=== PATIENT | female | born 1955 | race Caucasian/White ===

== ENCOUNTER 2023-12-17 16:50 | Emergency (ER) | payer MEDICARE, OTHER, SELFPAY ==
[2023-12-17] VITALS (8 sets, daily range): BP systolic 112–137; BP diastolic 55–74
[2023-12-17 17:12] LABS: % Basophils 0.2 % (0-2); % Eosinophils 0.2 % (0-6); % Immature Granulocytes 1.1 % (0-0.5); % Lymphocytes 25.2 % (20.5-51.1); % Monocytes 5.9 % (1.7-9.3); % Neutrophils 67.4 % (42.2-75.2); Absolute Immature Granulocytes 0.2 10^3/uL (0-0.05); Absolute Lymphocytes 3.8 10^3/uL (1.2-3.4); Absolute Monocytes 0.9 10^3/uL (0.1-0.6); Absolute Neutrophils 10.1 10^3/uL (1.4-6.5); Hematocrit 39.1 % (37.0-47.0); Hemoglobin 12.1 g/dL (12.0-16.0); Mean Corp Hgb Conc. 30.9 g/dL (33.0-37.0); Mean Corpuscular Hgb 30.1 pg (27.0-31.0); Mean Corpuscular Volume 97.3 fL (81.0-99.0); Mean Platelet Volume 8.7 fL (7.4-10.4); Nucleated Red Blood Cells % 0 %; Platelet Count 394 10^3/uL (130-400); Red Blood Cell Count 4.02 10^6/uL (4.20-5.40); Red Cell Dist. Width 12.4 % (11.5-14.5)
--- NOTE | 2023-12-17 17:19 | ED.GENMED ---
History of Present Illness
General
Chief Complaint: Breathing Problem
Source: [facility] and [facility]
Exam Limitations: none
Time Seen by Provider: 12/17/23 17:06
Nursing documentation reviewed up to this point in time: agreed with
History of Present Illness
History of Present Illness:
68-year-old female from local care facility presents with sputum production cough shortness of breath chronically on oxygen, for COPD staff reported pulse ox was low, given a neb by EMS still wheezing when I saw her no chest pain no leg edema no
fever no calf pain
Past History
Past History
ED Past Medical History: CHF, COPD (Emphysema/asthma), HTN, Hypercholesterolemia, Hypothyroidism, Psychiatric (Schizoaffective disorder, anxiety, never been hospitalized), Other (Bilateral Pneumonia, Diverticulitis,), Other (Dysphagia) and Other
(Ambulatory dysfunction)
ED Past Surgical History: Appendectomy and Cholecystectomy
Social History
Tobacco: Former smoker
Alcohol: Occasional
Drug: None
Personal:
Living: [facility]
Employment: Retired
Family History
Family History: Other (Noncontributory)
Review of Systems
Review of Systems
All Other Systems: Not applicable
Constitutional: Reports fatigue; Denies fever
Respiratory: Reports cough and trouble breathing
Cardiac: Reports no symptoms
ABD/GI: Reports no symptoms
: Reports no symptoms
Musculoskeletal: Reports no symptoms
Skin: Reports no symptoms
Endocrine: Reports no symptoms
Phy Exam
Physical Exam
Physical Exam:
Physical Exam
General: 6 female moderate respiratory distress
Neck: No jaundice
Heart: Regular
Lungs: Wheezing diminished breath sounds while
Abdomen: Distended not tender
Neuro: Globally weak moves all extremities
Skin: no rash
Psychiatric: Flat cooperative
Extremities: no edema. no calf tenderness
Scores
Heart Failure Risk
Heart Failure Risk Score: Not Applicable
Course
Orders/Labs/Results
Orders:
Orders
12/17/23 17:01
Electrocardiogram (*1) Urgent
Reason for Study: Shortness of Breath
12/17/23 17:02
EKG- Treatment ONCE
12/17/23 17:03
COVID-19 Antigen Urgent
Source: Nasal Swab
Complete Blood Count/With Diff Urgent
Comprehensive Metabolic Panel Urgent
NT-proBNP Urgent
12/17/23 17:06
CR Chest - 2 Views Urgent
Reason For Exam: SOB
12/17/23 17:18
Albuterol Nebs [Ventolin Nebules] 2.5 mg INH R NOW STA
Dexamethasone Sod Phosphate [Decadron] 10 mg IV NOW STA
Abnormal Lab Results
12/17/23
17:03
WBC 15.0 H 10^3/uL
(4.8-10.8)
RBC 4.02 L 10^6/uL
(4.20-5.40)
MCHC 30.9 L g/dL
(33.0-37.0)
Abs Immat Gran (auto) 0.2 H 10^3/uL
(0-0.05)
Absolute Neuts (auto) 10.1 H 10^3/uL
(1.4-6.5)
Absolute Lymphs (auto) 3.8 H 10^3/uL
(1.2-3.4)
Absolute Monos (auto) 0.9 H 10^3/uL
(0.1-0.6)
Immature Gran % 1.1 H %
(0-0.5)
Chloride 95 L mmol/L
(98-107)
Carbon Dioxide 35 H mmol/L
(22-30)
BUN 24 H mg/dl
(7-17)
AST 43 H U/L
(14-36)
ALT 42 H U/L
(0-35)
12/17/23 17:03
12/17/23 17:03
Vital Signs
Initial and Last Documented VS:
Initial Vital Signs
Temp Pulse Resp Pulse Ox
98.1 F 87 18 92
12/17/23 16:53 12/17/23 16:53 12/17/23 16:53 12/17/23 16:53
Last Documented Vital Signs
Temp Pulse Resp Pulse Ox
98.1 F 87 18 92
12/17/23 16:53 12/17/23 16:53 12/17/23 16:53 12/17/23 16:53
MDM/Problems Addressed
Differential Diagnosis Includes:
COPD heart failure pneumonia COVID
MDM/Problems Addressed:
Shortness of breath
Chronic conditions affecting care: HTN and COPD
Acute Exacerbation and/or Progression of Chronic Illness: HTN and COPD
*Radiology
Radiology exam reviewed: preliminary read by ED provider
*Pulse Oximetry
Patient hypoxic: yes
*EKG
Interpreted by ED Provider?: Yes
Interpretation: abnormal
Comparison EKG: no comparison EKG present
Heart Rate: 78
Rate: normal
Rhythm: sinus
Ischemia: non-specific ST changes
*Critical Care Note
Total Time (30-74mins, 75-104mins- exclusive of procedures): 12
Update Note
Update Note:
6:20 PM chest x-ray noted labs noted will continue with nebs supplemental oxygen and see how she responds
Update patient clinically improved satting better looking better she is hungry discharged with a short course of steroids consideration for empiric antibiotics
ED Attending Note
-
Portions of this chart may have been created with voice recognition software.� Occasional wrong word or��sound alike� substitutions may have occurred due to the inherent limitations of voice recognition software.
Discharge Plan
Departure
Patient Disposition: Assisted Living
Date of Disposition: 12/17/23
Time of Disposition: 18:58
Patient with high blood pressure during this ER visit?: No
Condition: Good
Covid-19: Negative COVID-19
Discharge Problem:
COPD with acute exacerbation, Acute bronchitis
Instructions: Exacerbation of COPD (DC), Shortness of Breath (Dyspnea) (DC)
Prescriptions:
New
doxycycline hyclate 100 mg capsule
100 mg PO BID Qty: 14 0RF
methylprednisolone [Medrol (Giovanny)] 4 mg tablets,dose pack
See Rx Instructions .ROUTE .COMPLEX Qty: 21 0RF
Rx Instructions:
for 6 days
albuterol sulfate 2.5 mg /3 mL (0.083 %) solution for nebulization
2.5 mg inhalation Q4H PRN (Reason: shortness of breath or wheezing) Qty: 180 0RF
No Action
amlodipine 10 MG tablet
10 mg PO DAILY
trazodone 50 MG tablet
50 mg PO HS
diclofenac sodium [Voltaren] 100 GM gel
100 gm topical DAILY PRN (Reason: pain to both shoulders/ kness)
fluphenazine HCl 5 mg Tablet
5 mg PO HS
acetaminophen [Tylenol] 325 mg Capsule
650 mg PO Q6H PRN (Reason: mild pain/ temp->100)
acetaminophen [Tylenol] 325 mg Tablet
650 mg PO DAILY
acetylcysteine 200 mg/mL (20 %) Solution
3 ml PO Q8H PRN (Reason: SOB)
albuterol sulfate 1.25 mg/3 mL Solution For Nebulization
1.25 mg INHALATION QID PRN (Reason: SOB/ cough)
fexofenadine 180 mg Tablet
180 mg PO DAILY
ammonium lactate 12 % Lotion
1 applic TOPICAL BID
Rx Instructions:
for 14days. started on 02/04/2023 and end dte 02/18/2023
artificial tears solution
Q6H
docusate sodium [Colace] 100 mg Capsule
200 mg PO DAILY
Combivent Respimat 20-100 mcg/actuation Mist
1 puff INHALATION DAILY
bisacodyl [Dulcolax (bisacodyl)] 10 mg Suppository
10 mg [place] DAILY PRN (Reason: constipation if MOM ineffective)
Fleet Enema 19-7 gram/118 mL Enema
1 ml SC PRN (Reason: constipation if dulcolax ineffective)
fluticasone furoate 27.5 mcg/actuation [place],Suspension
1 spray INTRANASAL DAILY
ipratropium-albuterol 0.5 mg-3 mg(2.5 mg base)/3 mL Solution For Nebulization
3 ml INHALATION Q8H
levothyroxine [Synthroid] 112 mcg Tablet
112 mcg PO DAILY
melatonin 10 mg Tablet
10 mg PO HS
Milk of Magnesia
30 ml PO PRN (Reason: constipation,if no BM X3days)
guaifenesin [Mucinex] 600 mg Tablet Extended Release 12hr
1,200 mg PO BID
montelukast [Singulair] 10 mg Tablet
10 mg PO DAILY
venlafaxine 150 mg Capsule,Extended Release 24hr
150 mg PO DAILY
albuterol sulfate [Ventolin HFA] 90 mcg/actuation Hfa Aerosol Inhaler
2 puff INHALATION Q4H PRN (Reason: asthma)
Vitamin D3
1.25 mg PO DAILY
Rx Instructions:
until 03/04/2023 ( 8week)
furosemide 40 mg Tablet
40 mg PO DAILY Qty: 30 0RF
prednisone 20 mg Tablet
40 mg PO DAILY Qty: 2 0RF
Rx Instructions:
last dose will be 02/11
doxycycline hyclate 100 mg Capsule
100 mg PO BID Qty: 3 0RF
lisinopril 20 mg Tablet
20 mg PO DAILY Qty: 30 0RF
pantoprazole 40 mg Tablet,Delayed Release (Dr/Ec)
40 mg PO DAILY Qty: 30 0RF
clonazepam 0.5 MG tablet
0.5 mg PO HS Qty: 3 0RF
tramadol 50 mg Tablet
50 mg PO BID PRN (Reason: moderate pain) Qty: 6 0RF
Referrals:
Andrei Best DO [Family Provider] -
Interventions
Interventions:
*Risk Screen - Suicide Last Done: 12/17/23 16:53
*General Assessment Last Done: 12/17/23 16:53
*Neglect/Abuse Screening Last Done: 12/17/23 16:53
Discharge Date and Time
Print Language: PU[place]
[2023-12-17 17:27] LABS: COVID-19 Antigen Negative (Negative)
[2023-12-17] MEDS: VENTOLIN NEBULES 2.5 MG INH (17:28)
[2023-12-17] MEDS: DECADRON 10 MG IV (17:28)
[2023-12-17 17:30] LABS: ALT (SGPT) 42 U/L (0-35); AST (SGOT) 43 U/L (14-36); Albumin 4.4 g/dl (3.5-5.0); Alkaline Phosphatase 76 U/L (38-126); Blood Urea Nitrogen 24 mg/dl (7-17); Calcium 9.7 mg/dl (8.4-10.2); Chloride 95 mmol/L (98-107); Glucose 80 mg/dl (70-99); Potassium 4.8 mmol/L (3.5-5.1); Sodium 142 mmol/L (135-145); Total Bilirubin 0.4 mg/dl (0.2-1.3); Total Protein 7.7 g/dl (6.3-8.2); eGFR > 60.00
[2023-12-17 17:40] LABS: Carbon Dioxide 35 mmol/L (22-30)
[2023-12-17 17:45] LABS: NT-proBNP 192 pg/ml
[2023-12-18] VITALS: BP 123/65
== END 2023-12-18 01:09 ==
LOC: EMR 16:50
PROVIDERS: Student in an Organized Health Care Education/Training Program; EMERGENCY PHYSICIAN Emergency Medicine
DX: J44.1 Chronic obstructive pulmonary disease with (acute) exacerbation (principal); J20.9 Acute bronchitis, unspecified; I11.0 Hypertensive heart disease with heart failure; I50.9 Heart failure, unspecified; E03.9 Hypothyroidism, unspecified; E78.00 Pure hypercholesterolemia, unspecified; F25.9 Schizoaffective disorder, unspecified; Z99.81 Dependence on supplemental oxygen; Z87.891 Personal history of nicotine dependence; Z90.49 Acquired absence of other specified parts of digestive tract
CPT/HCPCS: 99283; 94640; 96374; 71046; 80053; 83880; 85025; 87811; 93005

== ENCOUNTER 2024-07-14 16:23 | Emergency (ER) | payer MEDICARE, OTHER, SELFPAY ==
[2024-07-14 16:25] VITALS: BP 119/62
[2024-07-14 17:00] VITALS: BP 118/58
[2024-07-14] MEDS: DUONEB 3 ML INH (17:11)
[2024-07-14 17:18] LABS: % Basophils 0.8 % (0-2); % Eosinophils 7.5 % (0-6); % Immature Granulocytes 0.4 % (0-0.5); % Lymphocytes 29.5 % (20.5-51.1); % Monocytes 6.7 % (1.7-9.3); % Neutrophils 55.1 % (42.2-75.2); Absolute Basophils 0.1 10^3/uL (0-0.2); Absolute Eosinophils 0.8 10^3/uL (0-0.7); Absolute Lymphocytes 3.2 10^3/uL (1.2-3.4); Absolute Monocytes 0.7 10^3/uL (0.1-0.6); Absolute Neutrophils 5.9 10^3/uL (1.4-6.5); Hematocrit 34.6 % (37.0-47.0); Hemoglobin 10.7 g/dL (12.0-16.0); Mean Corp Hgb Conc. 30.9 g/dL (33.0-37.0); Mean Corpuscular Hgb 30.6 pg (27.0-31.0); Mean Corpuscular Volume 98.9 fL (81.0-99.0); Mean Platelet Volume 9.2 fL (7.4-10.4); Nucleated Red Blood Cells % 0 %; Platelet Count 309 10^3/uL (130-400); Red Cell Dist. Width 13.6 % (11.5-14.5); White Blood Cell Count 10.7 10^3/uL (4.8-10.8)
[2024-07-14 17:40] LABS: Blood Urea Nitrogen 14 mg/dl (7-17); Calcium 9.3 mg/dl (8.4-10.2); Carbon Dioxide 38 mmol/L (22-30); Chloride 95 mmol/L (98-107); Glucose 81 mg/dl (70-99); Sodium 137 mmol/L (135-145); eGFR > 60.00
[2024-07-14] MEDS: DECADRON 10 MG IV (18:41)
--- NOTE | 2024-07-14 19:25 | ED.GENMED ---
History of Present Illness
General
Chief Complaint: Breathing Problem
Source: patient, ambulance crew and residential
Exam Limitations: none
Time Seen by Provider: 07/14/24 16:30
Nursing documentation reviewed up to this point in time: agreed with
History of Present Illness
History of Present Illness:
68-year-old female presenting to the emergency department today with concerns of an episode where she felt shortness of breath and cramping. Claims that symptoms are fully resolved did receive morphine en route for the pain. Patient denies any
ongoing symptoms at this time
Past History
Past History
ED Past Medical History: CHF, COPD (Emphysema/asthma), HTN, Hypercholesterolemia, Hypothyroidism, Psychiatric (Schizoaffective disorder, anxiety, never been hospitalized), Other (Bilateral Pneumonia, Diverticulitis,), Other (Dysphagia) and Other
(Ambulatory dysfunction)
ED Past Surgical History: Appendectomy and Cholecystectomy
Social History
Tobacco: Former smoker
Alcohol: Occasional
Drug: None
Personal:
Living: residential
Employment: Retired
Family History
Family History: Other (Noncontributory)
Review of Systems
Review of Systems
Allergies reviewed?: Yes
All Other Systems: ROS reviewed and negative except as documented in HPI and ROS
Phy Exam
Physical Exam
Physical Exam:
GENERAL: Alert , in no apparent distress
EYE: pupils equal and reactive
NECK: Supple, no significant adenopathy.
ENT: o/p clr, mmm.
CARDIAC: Regular rate and rhythm .
LUNGS: End expiratory wheezing diffusely
ABDOMEN: Soft, without focal tenderness, no r/g, no cvat
NEUROLOGICAL: Alert and oriented, no focal neuro deficits
SKIN: Warm and dry, skin intact.
MUSCULOSKELETAL: No edema, well perfused.
PSYCH: Normal and appropriate interaction.
Scores
Heart Failure Risk
Heart Failure Risk Score: Not Applicable
Course
Orders/Labs/Results
Orders:
Orders
07/14/24 16:42
Dexamethasone Sod Phosphate [Decadron] 10 mg IV NOW STA
Ipratropium/Albuterol Sulfate [Duoneb] 3 ml INH R NOW STA
07/14/24 16:43
Electrocardiogram (*1) Stat
Reason for Study: Other
Other Reason for Exam: pneumonia
EKG- Treatment ONCE
CR Chest - 2 Views Urgent
Comment:
Reason For Exam: sob cough
07/14/24 17:06
Basic Metabolic Panel Urgent
Complete Blood Count/With Diff Urgent
Abnormal Lab Results
07/14/24
17:06
RBC 3.50 L 10^6/uL
(4.20-5.40)
Hgb 10.7 L g/dL
(12.0-16.0)
Hct 34.6 L %
(37.0-47.0)
MCHC 30.9 L g/dL
(33.0-37.0)
Absolute Monos (auto) 0.7 H 10^3/uL
(0.1-0.6)
Absolute Eos (auto) 0.8 H 10^3/uL
(0-0.7)
Eosinophils % 7.5 H %
(0-6)
Chloride 95 L mmol/L
(98-107)
Carbon Dioxide 38 H mmol/L
(22-30)
07/14/24 17:06
07/14/24 17:06
Vital Signs
Initial and Last Documented VS:
Initial Vital Signs
Temp Pulse Resp BP Pulse Ox
98.2 F 80 21 119/62 95
07/14/24 16:25 07/14/24 16:25 07/14/24 16:25 07/14/24 16:25 07/14/24 16:25
Last Documented Vital Signs
Temp Pulse Resp BP Pulse Ox
98.2 F 80 22 118/58 95
07/14/24 16:25 07/14/24 19:00 07/14/24 19:00 07/14/24 17:00 07/14/24 19:00
MDM/Problems Addressed
MDM/Problems Addressed:
68-year-old female presenting after an episode where she felt short of breath at her nursing facility. Symptoms now resolved. On arrival here vital signs are normal patient in no distress patient does have some wheezing though she claims to have
chronic wheezing does use 2 L nasal cannula at baseline for COPD. She was treated with steroid as well as nebulizer claim to be asymptomatic throughout ER stay EKG without emergent findings chest x-ray without emergent findings as well. Stable for
outpatient management return precautions given.
*Critical Care Note
Total Time (30-74mins, 75-104mins- exclusive of procedures): Not Applicable
ED Attending Note
-
Portions of this chart may have been created with voice recognition software.� Occasional wrong word or��sound alike� substitutions may have occurred due to the inherent limitations of voice recognition software.
Discharge Plan
Departure
Patient Disposition: Home (Routine Discharge)
Date of Disposition: 07/14/24
Time of Disposition: 19:27
Patient with high blood pressure during this ER visit?: No
Condition: Good
Covid-19: Not Applicable
Discharge Problem:
COPD with acute exacerbation
Instructions: Exacerbation of COPD (DC)
Prescriptions:
New
prednisone 50 mg tablet
50 mg PO DAILY 4 Days Qty: 4 0RF
No Action
amlodipine 10 MG tablet
10 mg PO DAILY
trazodone 50 MG tablet
50 mg PO HS
diclofenac sodium [Voltaren] 100 GM gel
100 gm topical DAILY PRN (Reason: pain to both shoulders/ kness)
fluphenazine HCl 5 mg Tablet
5 mg PO HS
acetaminophen [Tylenol] 325 mg Capsule
650 mg PO Q6H PRN (Reason: mild pain/ temp->100)
acetaminophen [Tylenol] 325 mg Tablet
650 mg PO DAILY
acetylcysteine 200 mg/mL (20 %) Solution
3 ml PO Q8H PRN (Reason: SOB)
albuterol sulfate 1.25 mg/3 mL Solution For Nebulization
1.25 mg INHALATION QID PRN (Reason: SOB/ cough)
fexofenadine 180 mg Tablet
180 mg PO DAILY
ammonium lactate 12 % Lotion
1 applic TOPICAL BID
Rx Instructions:
for 14days. started on 02/04/2023 and end dte 02/18/2023
artificial tears solution
Q6H
docusate sodium [Colace] 100 mg Capsule
200 mg PO DAILY
Combivent Respimat 20-100 mcg/actuation Mist
1 puff INHALATION DAILY
bisacodyl [Dulcolax (bisacodyl)] 10 mg Suppository
10 mg [place] DAILY PRN (Reason: constipation if MOM ineffective)
Fleet Enema 19-7 gram/118 mL Enema
1 ml [place] PRN (Reason: constipation if dulcolax ineffective)
fluticasone furoate 27.5 mcg/actuation [place],Suspension
1 spray INTRANASAL DAILY
ipratropium-albuterol 0.5 mg-3 mg(2.5 mg base)/3 mL Solution For Nebulization
3 ml INHALATION Q8H
levothyroxine [Synthroid] 112 mcg Tablet
112 mcg PO DAILY
melatonin 10 mg Tablet
10 mg PO HS
Milk of Magnesia
30 ml PO PRN (Reason: constipation,if no BM X3days)
guaifenesin [Mucinex] 600 mg Tablet Extended Release 12hr
1,200 mg PO BID
montelukast [Singulair] 10 mg Tablet
10 mg PO DAILY
venlafaxine 150 mg Capsule,Extended Release 24hr
150 mg PO DAILY
albuterol sulfate [Ventolin HFA] 90 mcg/actuation Hfa Aerosol Inhaler
2 puff INHALATION Q4H PRN (Reason: asthma)
Vitamin D3
1.25 mg PO DAILY
Rx Instructions:
until 03/04/2023 ( 8week)
furosemide 40 mg Tablet
40 mg PO DAILY Qty: 30 0RF
prednisone 20 mg Tablet
40 mg PO DAILY Qty: 2 0RF
Rx Instructions:
last dose will be 02/11
doxycycline hyclate 100 mg Capsule
100 mg PO BID Qty: 3 0RF
lisinopril 20 mg Tablet
20 mg PO DAILY Qty: 30 0RF
pantoprazole 40 mg Tablet,Delayed Release (Dr/Ec)
40 mg PO DAILY Qty: 30 0RF
clonazepam 0.5 MG tablet
0.5 mg PO HS Qty: 3 0RF
tramadol 50 mg Tablet
50 mg PO BID PRN (Reason: moderate pain) Qty: 6 0RF
doxycycline hyclate 100 mg capsule
100 mg PO BID Qty: 14 0RF
methylprednisolone [Medrol (Giovanny)] 4 mg tablets,dose pack
See Rx Instructions .ROUTE .COMPLEX Qty: 21 0RF
Rx Instructions:
for 6 days
albuterol sulfate 2.5 mg /3 mL (0.083 %) solution for nebulization
2.5 mg inhalation Q4H PRN (Reason: shortness of breath or wheezing) Qty: 180 0RF
Referrals:
Mustapha Salguero MD [Family Provider] -
Activity Restrictions/Additional Instructions:
You came to the emergency department today with concerns of shortness of breath episode prior to arrival. Here you are found to have some wheezing you were treated with a steroid and nebulizer here. Please continue to take steroids over the next 4
days. Return for any worsening, new or concerning symptoms.
Interventions
Interventions:
*Risk Screen - Suicide Last Done: 07/14/24 16:25
*General Assessment Last Done: 07/14/24 16:25
*Neglect/Abuse Screening Last Done: 07/14/24 16:25
*ED COVID-19 Vaccine History Last Done: 07/14/24 16:25
ED- Cardiac Assessment Last Done: 07/14/24 17:44
ED- Pulmonary Assessment Last Done: 07/14/24 17:44
Discharge Date and Time
Print Language: [place] ISLAND[place]
[2024-07-14 19:58] VITALS: BP 135/66
== END 2024-07-14 20:15 | disposition home or self-care (01) ==
LOC: EMR 16:23
PROVIDERS: Physician Assistant; EMERGENCY PHYSICIAN Student in an Organized Health Care Education/Training Program; FAMILY PHYSICIAN Otolaryngology Facial Plastic Surgery
DX: J44.1 Chronic obstructive pulmonary disease with (acute) exacerbation (principal); I11.0 Hypertensive heart disease with heart failure; I50.9 Heart failure, unspecified; F25.9 Schizoaffective disorder, unspecified; F41.9 Anxiety disorder, unspecified; E03.9 Hypothyroidism, unspecified; E78.00 Pure hypercholesterolemia, unspecified; Z87.891 Personal history of nicotine dependence; Z90.49 Acquired absence of other specified parts of digestive tract
CPT/HCPCS: 99283; 94640; 96374; 71046; 80048; 85025; 93005

== ENCOUNTER 2024-12-11 02:09 | Observation (INO) | payer MEDICARE, OTHER, SELFPAY ==
[2024-12-10 19:33] VITALS: BP 137/65
[2024-12-10 20:10] LABS: Hematocrit 39.2 % (37.0-47.0); Hemoglobin 12.1 g/dL (12.0-16.0); Mean Corp Hgb Conc. 30.9 g/dL (33.0-37.0); Mean Corpuscular Volume 96.8 fL (81.0-99.0); Nucleated Red Blood Cells % 0 %; Platelet Count 334 10^3/uL (130-400); Red Cell Dist. Width 12.9 % (11.5-14.5)
[2024-12-10 20:33] LABS: ALT (SGPT) 23 U/L (0-35); AST (SGOT) 28 U/L (14-36); Albumin 4.3 g/dl (3.5-5.0); Alkaline Phosphatase 58 U/L (38-126); Blood Urea Nitrogen 12 mg/dl (7-17); Calcium 8.9 mg/dl (8.4-10.2); Carbon Dioxide 35 mmol/L (22-30); Chloride 99 mmol/L (98-107); Glucose 143 mg/dl (70-99); Potassium 4.9 mmol/L (3.5-5.1); Sodium 139 mmol/L (135-145); Total Protein 7.3 g/dl (6.3-8.2); eGFR > 60.00
[2024-12-10 20:38] LABS: Troponin I < 0.012 ng/ml
--- NOTE | 2024-12-10 23:25 | ED.GENMED ---
History of Present Illness
General
Chief Complaint: Breathing Problem
Time Seen by Provider: 12/10/24 23:16
History of Present Illness
History of Present Illness:
69-year-old female with history of COPD and hypertension presents to the emergency department for evaluation of shortness of breath that began this afternoon. She has a history of COPD, it is not immediately clear on initial assessment if she
requires O2 or uses it as needed. She denies any chest pain. Notes that she had 'pneumonia' last week. Denies any fevers or chills. Reports a sore throat that began earlier today. She is anticoagulated long-term
Past History
Past History
ED Past Medical History: CHF, COPD (Emphysema/asthma), HTN, Hypercholesterolemia, Hypothyroidism, Psychiatric (Schizoaffective disorder, anxiety, never been hospitalized), Other (Bilateral Pneumonia, Diverticulitis,), Other (Dysphagia) and Other
(Ambulatory dysfunction)
ED Past Surgical History: Appendectomy and Cholecystectomy
Social History
Tobacco: Former smoker
Alcohol: Occasional
Drug: None
Personal:
Living: group home
Employment: Retired
Family History
Family History: Other (Noncontributory)
Review of Systems
Review of Systems
Allergies reviewed?: Yes
All Other Systems: ROS reviewed and negative except as documented in HPI and ROS
Phy Exam
Physical Exam
Physical Exam:
GEN: Well appearing, NAD, WDWN
HEENT: Oral mucosa moist, no scleral icterus
Cardiac: Regular rate and rhythm
Lung: Tachypneic with grossly diminished breath sounds throughout
MSK: No gross deformity or injuries
Skin: Good color, no pallor or jaundice, no rashes
Neuro: AO x3, moves all extremities freely
Psych: Calm, cooperative
Scores
Heart Failure Risk
Heart Failure Risk Score: Not Applicable
Course
Orders/Labs/Results
Orders:
Orders
12/10/24 19:37
Electrocardiogram (*1) Urgent
Reason for Study: Shortness of Breath
EKG- Treatment ONCE
12/10/24 20:02
BNP [NT-proBNP] Urgent
Complete Blood Count/With Diff Urgent
Comprehensive Metabolic Panel Urgent
Troponin I Urgent
12/10/24 22:52
CR Chest - 2 Views Urgent
Comment:
Reason For Exam: SOB
12/10/24 23:24
Ipratropium/Albuterol Sulfate [Duoneb] 6 ml INH R NOW ONE
12/10/24 23:55
COVID-19 Antigen Urgent
Source: Nasal Swab
Influenza A+B Rapid Molecular Urgent
JAYCOB Source: Nasal Swab
Specimen Description:
Abnormal Lab Results
12/10/24
20:02
WBC 11.8 H 10^3/uL
(4.8-10.8)
RBC 4.05 L 10^6/uL
(4.20-5.40)
MCHC 30.9 L g/dL
(33.0-37.0)
Abs Immat Gran (auto) 0.1 H 10^3/uL
(0-0.05)
Absolute Lymphs (auto) 3.6 H 10^3/uL
(1.2-3.4)
Absolute Monos (auto) 0.7 H 10^3/uL
(0.1-0.6)
Absolute Eos (auto) 0.9 H 10^3/uL
(0-0.7)
Immature Gran % 1.0 H %
(0-0.5)
Eosinophils % 7.5 H %
(0-6)
Carbon Dioxide 35 H mmol/L
(22-30)
Glucose 143 H mg/dl
(70-99)
12/10/24 20:02
12/10/24 20:02
Vital Signs
Initial and Last Documented VS:
Initial Vital Signs
Temp Pulse Resp BP Pulse Ox
98.2 F 87 16 137/65 98
12/10/24 19:33 12/10/24 19:33 12/10/24 19:33 12/10/24 19:33 12/10/24 19:33
Last Documented Vital Signs
Temp Pulse Resp BP Pulse Ox
98.2 F 87 16 137/65 100
12/10/24 19:33 12/10/24 19:33 12/10/24 19:33 12/10/24 19:33 12/10/24 23:43
MDM/Problems Addressed
MDM/Problems Addressed:
Patient did improve breath sounds with [id number] nebulizer treatments however with continued wheezing, she is chronically on oxygen at 2 L. Will admit for IV steroids and further neb treatments. Chest x-ray shows no evidence for pneumonia and
labs are reassuring
*Pulse Oximetry
SaO2: 98
Nasal Cannula flow liters per minute: 3
Patient hypoxic: no
*Critical Care Note
Total Time (30-74mins, 75-104mins- exclusive of procedures): Not Applicable
ED Attending Note
-
Portions of this chart may have been created with voice recognition software.� Occasional wrong word or��sound alike� substitutions may have occurred due to the inherent limitations of voice recognition software.
Discharge Plan
Departure
Patient Disposition: Admit
Date of Disposition: 12/11/24
Time of Disposition: 00:53
Admit to: Med/Surg
Presentation/result/management discussed w/ accepting MD/DO: Hospitalist
Discharge Problem:
Asthma exacerbation in COPD
Prescriptions:
No Action
amlodipine 10 MG tablet
10 mg PO DAILY
trazodone 50 MG tablet
50 mg PO HS
diclofenac sodium [Voltaren] 100 GM gel
100 gm topical DAILY PRN (Reason: pain to both shoulders/ kness)
fluphenazine HCl 5 mg Tablet
5 mg PO HS
acetaminophen [Tylenol] 325 mg Capsule
650 mg PO Q6H PRN (Reason: mild pain/ temp->100)
acetaminophen [Tylenol] 325 mg Tablet
650 mg PO DAILY
acetylcysteine 200 mg/mL (20 %) Solution
3 ml PO Q8H PRN (Reason: SOB)
albuterol sulfate 1.25 mg/3 mL Solution For Nebulization
1.25 mg INHALATION QID PRN (Reason: SOB/ cough)
fexofenadine 180 mg Tablet
180 mg PO DAILY
ammonium lactate 12 % Lotion
1 applic TOPICAL BID
Rx Instructions:
for 14days. started on 02/04/2023 and end dte 02/18/2023
artificial tears solution
Q6H
docusate sodium [Colace] 100 mg Capsule
200 mg PO DAILY
Combivent Respimat 20-100 mcg/actuation Mist
1 puff INHALATION DAILY
bisacodyl [Dulcolax (bisacodyl)] 10 mg Suppository
10 mg [place] DAILY PRN (Reason: constipation if MOM ineffective)
Fleet Enema 19-7 gram/118 mL Enema
1 ml [place] PRN (Reason: constipation if dulcolax ineffective)
fluticasone furoate 27.5 mcg/actuation [place],Suspension
1 spray INTRANASAL DAILY
ipratropium-albuterol 0.5 mg-3 mg(2.5 mg base)/3 mL Solution For Nebulization
3 ml INHALATION Q8H
levothyroxine [Synthroid] 112 mcg Tablet
112 mcg PO DAILY
melatonin 10 mg Tablet
10 mg PO HS
Milk of Magnesia
30 ml PO PRN (Reason: constipation,if no BM X3days)
guaifenesin [Mucinex] 600 mg Tablet Extended Release 12hr
1,200 mg PO BID
montelukast [Singulair] 10 mg Tablet
10 mg PO DAILY
venlafaxine 150 mg Capsule,Extended Release 24hr
150 mg PO DAILY
albuterol sulfate [Ventolin HFA] 90 mcg/actuation Hfa Aerosol Inhaler
2 puff INHALATION Q4H PRN (Reason: asthma)
Vitamin D3
1.25 mg PO DAILY
Rx Instructions:
until 03/04/2023 ( 8week)
furosemide 40 mg Tablet
40 mg PO DAILY Qty: 30 0RF
prednisone 20 mg Tablet
40 mg PO DAILY Qty: 2 0RF
Rx Instructions:
last dose will be 02/11
doxycycline hyclate 100 mg Capsule
100 mg PO BID Qty: 3 0RF
lisinopril 20 mg Tablet
20 mg PO DAILY Qty: 30 0RF
pantoprazole 40 mg Tablet,Delayed Release (Dr/Ec)
40 mg PO DAILY Qty: 30 0RF
clonazepam 0.5 MG tablet
0.5 mg PO HS Qty: 3 0RF
tramadol 50 mg Tablet
50 mg PO BID PRN (Reason: moderate pain) Qty: 6 0RF
doxycycline hyclate 100 mg capsule
100 mg PO BID Qty: 14 0RF
methylprednisolone [Medrol (Giovanny)] 4 mg tablets,dose pack
See Rx Instructions .ROUTE .COMPLEX Qty: 21 0RF
Rx Instructions:
for 6 days
albuterol sulfate 2.5 mg /3 mL (0.083 %) solution for nebulization
2.5 mg inhalation Q4H PRN (Reason: shortness of breath or wheezing) Qty: 180 0RF
prednisone 50 mg tablet
50 mg PO DAILY 4 Days Qty: 4 0RF
Referrals:
Lee Best DO [Family Provider, Family Practice]
Interventions
Interventions:
*Risk Screen - Suicide Last Done: 12/10/24 19:33
*General Assessment Last Done: 12/10/24 19:33
*Neglect/Abuse Screening Last Done: 12/10/24 19:33
*ED- Fall Risk Assessment Last Done: 12/10/24 19:33
*ED COVID-19 Vaccine History Last Done: 12/10/24 19:33
ED- Cardiac Assessment Last Done: 12/10/24 23:43
ED- Pulmonary Assessment Last Done: 12/10/24 23:43
Discharge Date and Time
Print Language: SYRIAN
[2024-12-10 23:43] VITALS: BMI 32.0
[2024-12-10] MEDS: DUONEB 6 ML INH (23:49)
[2024-12-11] VITALS (11 sets, daily range): BP systolic 91–120; BP diastolic 45–89; BMI 32.4
[2024-12-11 00:22] LABS: COVID-19 Antigen Negative (Negative)
[2024-12-11] MEDS: DUONEB 3 ML INH ×5 (00:58→18:25)
--- NOTE | 2024-12-11 01:44 | HPS.HSE ---
Family Physician
-
Family Physician: Lee Best, DO
Chief Complaint
-
SOB
History of Present Illness
Patient is a 69y F with PMH significant for COPD and schizophrenia who presents to ED complaining of SOB. Patient states that she has had increased SOB for about one week. She reports sore throat and increased cough from baseline. She states
that several residents at her facility have had 'cold symptoms' recently. [facility] she was noted to have wheezing. She received steroids and neb treatments and states that she feels improved from inital
arrival. Patient denies any chest pain, palpitations, fevers / chills, etc.
Medical History
Past Medical History
Past Medical History: Reports Other
Additional Past Medical History:
Schizophrenia
COPD
Hypertension
BALBINA
Thyroid Nodule
Hypothyroidism
Obesity
Past Surgical History: Reports Other
Additional Past Surgical History:
Bladder Surgery
Cholecystectomy
Parotidectomy
Social History
Tobacco: Former Smoker (Quit smoking 5 years ago. 40 pack years total use.)
Alcohol: Occasional
Drug: None
Living: Long Term
Family History
Family History: Not pertinent
Allergies / Home Medications
Allergies reflects when Allergies were last updated in [employer].
Home Medications with original date entered in [employer]
Allergy/Medication List:
Allergies
Allergy/AdvReac Type Severity Reaction Status Date / Time
cefepime Allergy Unknown Verified 12/17/23 16:53
codeine Allergy Unknown Verified 12/17/23 16:53
Penicillins Allergy Unknown Verified 12/17/23 16:53
vancomycin Allergy Unknown Verified 12/17/23 16:53
IV dye Allergy Anaphylaxis Uncoded 12/17/23 16:53
Home Medications
amlodipine 10 mg tablet 10 mg PO DAILY Blood Pressure 11/26/18
Milk of Magnesia 30 ml PO DAILYPRN PRN constipation,if no BM X3days 02/07/23
acetaminophen 325 mg capsule (Tylenol) 650 mg PO Q6H PRN mild pain/ temp->100 02/07/23
acetylcysteine 200 mg/mL (20 %) solution 3 ml PO Q8H PRN SOB 02/07/23
albuterol sulfate 90 mcg/actuation aerosol inhaler (Ventolin HFA) 2 puff inhalation Q4H PRN asthma 02/07/23
bisacodyl 10 mg rectal suppository (Dulcolax (bisacodyl)) 10 mg LA DAILY PRN constipation if MOM ineffective 02/07/23
docusate sodium 100 mg capsule (Colace) 200 mg PO DAILY Constipation 02/07/23
fexofenadine 180 mg tablet 180 mg PO DAILY Allergies 02/07/23
fluticasone furoate 27.5 mcg/actuation nasal spray,suspension 1 spray intranasal DAILY Allergies 02/07/23
guaifenesin 600 mg tablet, extended release 12 hr (Mucinex) 600 mg PO BID Congestion 02/07/23
ipratropium 0.5 mg-albuterol 3 mg (2.5 mg base)/3 mL nebulization soln 3 ml inhalation Q6H Lung/Breathing Issues 02/07/23
ipratropium 20 mcg-albuterol 100 mcg/actuation mist for inhalation (Combivent Respimat) 1 puff inhalation DAILY Lung/Breathing Issues 02/07/23
levothyroxine 112 mcg tablet (Synthroid) 112 mcg PO DAILY Thyroid 02/07/23
melatonin 10 mg tablet 10 mg PO HS Sleep 02/07/23
montelukast 10 mg tablet (Singulair) 10 mg PO DAILY Allergies 02/07/23
sodium phosphates 19 gram-7 gram/118 mL enema (Fleet Enema) 118 ml LA DAILYPRN PRN constipation if dulcolax ineffective 02/07/23
venlafaxine 150 mg capsule,extended release 24 hr 150 mg PO DAILY Depression 02/07/23
furosemide 40 mg tablet 40 mg PO DAILY #30 tabs 02/10/23
lisinopril 20 mg tablet 20 mg PO DAILY #30 tabs 02/10/23
albuterol sulfate 2.5 mg/3 mL (0.083 %) solution for nebulization 2.5 mg (3 mL) inhalation Q4H PRN shortness of breath or wheezing #180 mL 12/17/23
budesonide 0.5 mg/2 mL suspension for nebulization 0.5 mg inhalation BID 12/11/24
clonazepam 0.5 mg tablet 0.5 mg PO BID Sleep 12/11/24
fluphenazine HCl 2.5 mg tablet 2.5 mg PO BID 12/11/24
morphine concentrate 20 mg/mL oral syringe (FOR ORAL USE ONLY) 5 mg sublingual Q6H PRN SOB 12/11/24
potassium chloride 20 mEq tablet,extended release(part/cryst) 20 meq PO DAILY 12/11/24
sennosides 8.6 mg-docusate sodium 50 mg tablet (Senna Plus) 1 tab-cap PO BID 12/11/24
trazodone 150 mg tablet 75 mg PO HS 12/11/24
venlafaxine 37.5 mg tablet 37.5 mg PO DAILY 12/11/24
Review of Systems
-
History Source: Patient
A 12 point ROS was completed and negative except as noted: Yes
Constitutional: Denies Fever or Chills
EENT: Reports Sore Throat
Respiratory: Reports Cough and Trouble Breathing
Cardiac: Denies Chest Pain or Palpitations
Abdomen/GI: Denies Abdominal Pain, Nausea, Vomiting or Diarrhea
: Denies Dysuria or Frequency
Musculoskeletal: Denies Joint Pain or Edema
Neurological: Denies Dizzy or Headache
Physical Exam
Vital Signs
Vital Signs
Temp Pulse Resp BP Pulse Ox
98.2 F 82 15 114/62 96
12/10/24 19:33 12/11/24 00:45 12/11/24 00:45 12/11/24 00:00 12/11/24 00:45
Physical Exam
General: Other (69y F in no acute distress, Flat affect.)
HEENT: Moist mucous membranes, PERRLA and Other (Thick neck.)
Respiratory: Other (Diffuse inspiratory and expiratory rales. No audible wheezing.)
Cardiac: S1/S2 and Regular Rhythm; No Murmur
GI: Soft, Non Tender, Non Distended and Normal Bowel Sounds
Musculoskeletal: No Clubbing, No Cyanosis and No Edema
Neuro: AO x 3
Laboratory Results
-
12/10/24 20:02
12/10/24 20:02
Laboratory Results
Total Bilirubin 0.3 mg/dl (0.2-1.3) 12/10/24 20:02
AST 28 U/L (14-36) 12/10/24 20:02
ALT 23 U/L (0-35) 12/10/24 20:02
Alkaline Phosphatase 58 U/L (38-126) 12/10/24 20:02
Troponin I < 0.012 ng/ml 12/10/24 20:02
Impression/Plan
-
A/P: Patient is a 69y F with PMH significant for schizophrenia and COPD who presents to ED from local [place] for evaluation of SOB and sore throat.
COPD
Chronic Hypoxemic Respiratory Failure
- Observe overnight for further evaluation and treatment.
- Patient with subjective increase in symptoms, but oxygenating well on usual 2 lpm of O2, afebrile, non-toxic appearing and with unremarkable CXR.
- Solumedrol 40mg q 12 for now with tentative plan for rapid taper / transition to PO steroid.
- Pulmonary exam suggests more interstitial disease process with diffuse 'dry' rales. Consider CT scan if further evaluation is desired.
- Patient noted to be 'DNR/DNI/DNH' per [place] record and is on morphine concentrate for dyspnea. Need to clarify goals of care.
Schizoaffective Disorder
Anxiety
- Stable. Continue usual psychotropic med regimen without changes.
Benign Hypertension
- Stable. Continue usual outpatient medications.
Hypothyroidism
- Continue usual T4 supplementation.
DVT Prophylaxis: Lovenox
Code Status: DNR
[2024-12-11] MEDS: DECADRON 10 MG IV (02:27)
[2024-12-11] MEDS: SOLU-MEDROL PF 40 MG IV ×3 (05:52→21:59)
[2024-12-11] MEDS: SYNTHROID 112 MCG PO (05:53)
[2024-12-11 06:12] LABS: Hematocrit 34.3 % (37.0-47.0); Hemoglobin 10.8 g/dL (12.0-16.0); Mean Corp Hgb Conc. 31.5 g/dL (33.0-37.0); Mean Corpuscular Volume 95.8 fL (81.0-99.0); Platelet Count 284 10^3/uL (130-400); Red Cell Dist. Width 12.7 % (11.5-14.5)
[2024-12-11 06:47] LABS: Blood Urea Nitrogen 16 mg/dl (7-17); Calcium 8.9 mg/dl (8.4-10.2); Carbon Dioxide 34 mmol/L (22-30); Chloride 101 mmol/L (98-107); Estimated Creatinine Clearance 62 ml/min; Glucose 172 mg/dl (70-99); Sodium 139 mmol/L (135-145); eGFR > 60.00
[2024-12-11] MEDS: PULMICORT 0.5 MG INH ×2 (07:49→18:24)
[2024-12-11] MEDS: SENOKOT-S 1 TABLET PO ×2 (07:51→20:26)
[2024-12-11] MEDS: COLACE 200 MG PO (07:51)
[2024-12-11] MEDS: MUCINEX 600 MG PO ×2 (07:51→20:26)
[2024-12-11] MEDS: CLARITIN 10 MG PO (07:51)
[2024-12-11] MEDS: SINGULAIR 10 MG PO (07:52)
[2024-12-11] MEDS: NORVASC 10 MG PO (07:52)
[2024-12-11] MEDS: KLONOPIN 0.5 MG PO ×2 (07:52→20:26)
[2024-12-11] MEDS: KCL 20 MEQ PO (07:52)
[2024-12-11] MEDS: LASIX 40 MG PO (07:52)
[2024-12-11] MEDS: ZESTRIL 20 MG PO (07:53)
[2024-12-11] MEDS: PROLIXIN 2.5 MG PO ×2 (08:05→20:26)
[2024-12-11] MEDS: EFFEXOR XR 150 MG PO (08:05)
[2024-12-11] MEDS: EFFEXOR 37.5 MG PO (08:05)
--- NOTE | 2024-12-11 09:58 | W.PN.UPDATE ---
Update Note
Progress Note Update
Admitted 145 AM
reports breathing slightly improving
less cough
no chest pain
Assessment:
acute COPD exacerbation
Chronic Hypoxemic Respiratory Failure
- Patient with subjective increase in symptoms, but oxygenating well on usual 2 lpm of O2, afebrile, non-toxic appearing and with unremarkable CXR.
- Solu-Medrol 40mg q8h for now with tentative plan for rapid taper/transition to PO steroid.
- Pulmonary exam suggests more interstitial disease process with diffuse 'dry' rales. Obtain CT chest to further evaluate.
- Patient noted to be 'DNR/DNI/DNH' per [place] record and is on morphine concentrate for dyspnea. Discussed with Daughter Daniel - patient is DNR/DNI but is ok for treatment/hospitalization.
Schizoaffective Disorder
Anxiety
- Stable. Continue usual psychotropic med regimen without changes.
Benign Hypertension
- Stable. Continue usual outpatient medications.
Hypothyroidism
- Continue usual T4 supplementation.
DVT Prophylaxis: Lovenox
Code Status: DNR/DNI
[2024-12-11] MEDS: VIBRAMYCIN 100 MG PO ×2 (10:30→20:26)
--- NOTE | 2024-12-11 10:31 | CM ---
CM reviewed chart and met with pt bedside in ED. Pt is LTC resident at [facility] for past 5 years. Needs assistance with ADLs and personal care, wheelchair bound, states she is able to stand and pivot.
On 2L NC at baseline.
Discharge plan: Return to [facility] LTC pending ongoing medical evaluation
--- NOTE | 2024-12-11 13:25 | PTOTSP ---
Speech Language Pathology
Pt seen for clinical bedside swallow evaluation. Known to CASTING ROOM OPERATOR at with previous VSE completed 02/10/23, with findings of oropharyngeal swallow WFL. This date, P.O. trials of puree, regular solids, and thin liquids provided. Adequate mastication,
bolus formation, and A-P transit noted with no oral residue. Brief cough x1 during evaluation. WBC WNL and CT chest favoring atelectasis over PNA.
Recommend:
(1) Regular solids/thin liquids
(2) General aspiration precautions
(3) Esophageal precautions
(4) Meds as tolerated
(5) CASTING ROOM OPERATOR to sign off. Please reconsult as indicated
--- NOTE | 2024-12-11 15:54 | PTCARENOTE ---
Patient arrived from ED holds to 1 Acute on 2L NC, which is her home oxygen dose per chart. Pt is soft spoken, oriented, denies sob. Lungs are clear/diminished bilaterally. RT is in room now providing breathing treatment.
[2024-12-11] MEDS: LOVENOX 40 MG SC (17:20)
[2024-12-11] MEDS: DESYREL 75 MG PO (21:58)
[2024-12-11] MEDS: MELATONIN 10 MG PO (21:58)
[2024-12-12 04:25] VITALS: BMI 31.9
[2024-12-12] MEDS: SYNTHROID 112 MCG PO (06:06)
[2024-12-12] MEDS: SOLU-MEDROL PF 40 MG IV ×3 (06:06→22:11)
--- NOTE | 2024-12-12 06:29 | PTCARENOTE ---
Pt slept well overnight. Pt remains on 2 LO2 NC, occasional harsh cough noted when awake. Pt inc of urine, theo care provided when needed. Pt positioned per comfort. No issues to report. Will continue to monitor.
[2024-12-12 07:00] VITALS: BP 108/38
[2024-12-12] MEDS: PULMICORT 0.5 MG INH ×2 (07:17→19:14)
[2024-12-12] MEDS: DUONEB 3 ML INH ×4 (07:17→19:14)
[2024-12-12] MEDS: ZESTRIL 20 MG PO (08:30)
[2024-12-12] MEDS: KLONOPIN 0.5 MG PO ×2 (08:30→20:36)
[2024-12-12] MEDS: EFFEXOR 37.5 MG PO (08:30)
[2024-12-12] MEDS: SINGULAIR 10 MG PO (08:31)
[2024-12-12] MEDS: PROLIXIN 2.5 MG PO ×2 (08:31→20:35)
[2024-12-12] MEDS: COLACE 200 MG PO (08:31)
[2024-12-12] MEDS: LASIX 40 MG PO (08:34)
[2024-12-12] MEDS: SENOKOT-S 1 TABLET PO ×2 (08:35→20:35)
[2024-12-12] MEDS: MUCINEX 600 MG PO ×2 (08:35→20:34)
[2024-12-12] MEDS: EFFEXOR XR 150 MG PO (08:35)
[2024-12-12] MEDS: KCL 20 MEQ PO (08:35)
[2024-12-12] MEDS: CLARITIN 10 MG PO (08:35)
[2024-12-12] MEDS: VIBRAMYCIN 100 MG PO ×2 (08:35→20:36)
[2024-12-12] MEDS: NORVASC PO (08:40)
[2024-12-12 08:56] VITALS: BP 120/57; BP 93/51; PULSE 75; O2SAT 98
[2024-12-12 09:43] VITALS: BP 120/57; BP 93/51; PULSE 75; O2SAT 96
[2024-12-12 10:41] LABS: Hematocrit 34.5 % (37.0-47.0); Hemoglobin 11.0 g/dL (12.0-16.0); Mean Corp Hgb Conc. 31.9 g/dL (33.0-37.0); Mean Corpuscular Volume 96.1 fL (81.0-99.0); Platelet Count 321 10^3/uL (130-400); Red Cell Dist. Width 12.6 % (11.5-14.5)
[2024-12-12 11:10] LABS: Blood Urea Nitrogen 20 mg/dl (7-17); Calcium 9.8 mg/dl (8.4-10.2); Carbon Dioxide 31 mmol/L (22-30); Chloride 100 mmol/L (98-107); Estimated Creatinine Clearance 62 ml/min; Glucose 196 mg/dl (70-99); Potassium 5.1 mmol/L (3.5-5.1); Sodium 138 mmol/L (135-145); eGFR > 60.00
[2024-12-12 15:00] VITALS: BP 97/53
--- NOTE | 2024-12-12 15:47 | W.PN.HOSP.TC ---
Today's Communication/Plan
-
continue IV steroids
Doxy
Assessment / Plan
Assessment / Plan
Assessment:
acute COPD exacerbation
Chronic Hypoxemic Respiratory Failure
- Patient with subjective increase in symptoms, but oxygenating well on usual 2 lpm of O2, afebrile, non-toxic appearing and with unremarkable CXR.
- Solu-Medrol 40mg q8h for now with tentative plan for rapid taper/transition to PO steroid.
- nebs scheduled and prn
- Doxycycline course
- Pulmonary exam suggests more interstitial disease process with diffuse 'dry' rales. CT chest: Moderate apical predominant emphysematous changes. There are minimal right basilar opacities which are favored to represent atelectasis, less likely
pneumonia.
- check AM ABG
- Patient noted to be 'DNR/DNI/DNH' per [place] record and is on morphine concentrate for dyspnea. Discussed with Daughter Daniel - patient is DNR/DNI but is ok for treatment/hospitalization.
Schizoaffective Disorder
Anxiety
- Stable. Continue usual psychotropic med regimen without changes.
Benign Hypertension
- Stable. Continue usual outpatient medications.
Hypothyroidism
- Continue usual T4 supplementation.
DVT Prophylaxis: Lovenox
Code Status: DNR/DNI
Anticipated Discharge: > 48 hours
Subjective/Interval History
-
Date of Service: December 12, 2024
resting comfortably, no complaints
Objective Data
-
Labs:
Laboratory Results
12/12/24
10:26
WBC 14.5 H
Hgb 11.0 L
Hct 34.5 L
Plt Count 321
Sodium 138
Potassium 5.1
Chloride 100
Carbon Dioxide 31 H
BUN 20 H
Creatinine 0.8
Glucose 196 H
Calcium 9.8
Vital Signs:
Vital Signs
Temp Pulse Resp BP Pulse Ox
97.8 F 84 18 108/38 98
12/12/24 07:00 12/12/24 15:25 12/12/24 15:25 12/12/24 07:00 12/12/24 15:25
I&O
12/11/24 12/12/24 12/13/24
06:59 06:59 06:59
Intake Total 425 / 425
Output Total 150 / 150
Balance 275 / 275
Physical Exam
-
General: No Apparent Distress
HEENT: Normocephalic and Atraumatic
Respiratory: Negative Wheezes
Cardiac: Regular Rhythm and S1/S2
GI: Soft
Neuro: AO x 3
Psych: Calm
Data Reviewed
-
Total Time Spent with Patient (in minutes): 42
Labs: Labs Reviewed by me
[2024-12-12] MEDS: LOVENOX 40 MG SC (17:07)
[2024-12-12 17:52] VITALS: BP 117/58
--- NOTE | 2024-12-12 18:00 | PTCARENOTE ---
[facility]. AAOx3, assisted into bed. Assessed and oriented to room. Call knowles in close reach.
[2024-12-12] MEDS: MELATONIN 10 MG PO (22:10)
[2024-12-12] MEDS: DESYREL 75 MG PO (22:11)
[2024-12-12 23:23] VITALS: BP 104/52
[2024-12-13] MEDS: SYNTHROID 112 MCG PO (05:07)
[2024-12-13] MEDS: SOLU-MEDROL PF 40 MG IV ×2 (05:07→20:11)
[2024-12-13 05:19] LABS: B.E. 9.2 mmol/L; HCO3 35.5 mmol/L (21-28); O2 Saturation % 91.3 % (94-98); PCO2 56 mmHg (32-35)
[2024-12-13 05:20] LABS: PO2 59 mmHg (83-108)
[2024-12-13 05:26] VITALS: BMI 31.6
[2024-12-13] MEDS: DUONEB 3 ML INH ×4 (07:36→19:23)
[2024-12-13] MEDS: PULMICORT 0.5 MG INH ×2 (07:37→19:22)
[2024-12-13 07:47] VITALS: BP 117/67
[2024-12-13 08:02] LABS: Hematocrit 35.6 % (37.0-47.0); Hemoglobin 11.2 g/dL (12.0-16.0); Mean Corp Hgb Conc. 31.5 g/dL (33.0-37.0); Mean Corpuscular Volume 95.2 fL (81.0-99.0); Platelet Count 318 10^3/uL (130-400); Red Cell Dist. Width 12.7 % (11.5-14.5)
[2024-12-13] MEDS: EFFEXOR XR 150 MG PO (08:19)
[2024-12-13] MEDS: SINGULAIR 10 MG PO (08:19)
[2024-12-13] MEDS: VIBRAMYCIN 100 MG PO ×2 (08:20→20:10)
[2024-12-13] MEDS: SENOKOT-S 1 TABLET PO ×2 (08:20→20:10)
[2024-12-13] MEDS: CLARITIN 10 MG PO (08:20)
[2024-12-13] MEDS: MUCINEX 600 MG PO ×2 (08:20→20:10)
[2024-12-13] MEDS: KCL 20 MEQ PO (08:21)
[2024-12-13] MEDS: COLACE 200 MG PO (08:21)
[2024-12-13] MEDS: LASIX 40 MG PO (08:26)
[2024-12-13] MEDS: EFFEXOR 37.5 MG PO (08:27)
[2024-12-13] MEDS: PROLIXIN 2.5 MG PO ×2 (08:27→20:08)
[2024-12-13] MEDS: KLONOPIN 0.5 MG PO ×2 (08:28→20:11)
[2024-12-13] MEDS: ZESTRIL 20 MG PO (08:28)
[2024-12-13 08:32] LABS: Blood Urea Nitrogen 27 mg/dl (7-17); Calcium 9.6 mg/dl (8.4-10.2); Carbon Dioxide 28 mmol/L (22-30); Chloride 102 mmol/L (98-107); Estimated Creatinine Clearance 62 ml/min; Glucose 140 mg/dl (70-99); Potassium 5.4 mmol/L (3.5-5.1); Sodium 139 mmol/L (135-145); eGFR > 60.00
--- NOTE | 2024-12-13 10:39 | W.PN.HOSP.TC ---
Today's Communication/Plan
-
wean steroids
continue doxy
pulm consult for BALBINA/Hypercarbia management recs
Assessment / Plan
Assessment / Plan
Assessment:
acute COPD exacerbation
Chronic Hypoxemic Respiratory Failure
- Patient with subjective increase in symptoms, but oxygenating well on usual 2 lpm of O2, afebrile, non-toxic appearing and with unremarkable CXR.
- Solu-Medrol 40mg q12h for now with plan for rapid taper/transition to PO steroid.
- nebs scheduled and prn
- Doxycycline course x 5 days
- Pulmonary exam suggests more interstitial disease process with diffuse 'dry' rales. CT chest: Moderate apical predominant emphysematous changes. There are minimal right basilar opacities which are favored to represent atelectasis, less likely
pneumonia.
- Patient noted to be 'DNR/DNI/DNH' per [facility] record and is on morphine concentrate for dyspnea. Discussed with Daughter Daniel - patient is DNR/DNI but is ok for treatment/hospitalization.
history of BALBINA
- with desats on nocturnal oximetry and also likely chronic hypercarbia - ABG confirms
- Pulmonary evaluation; patient previously with CPAP but could not tolerate due to claustrophobia, discomfort
Schizoaffective Disorder
Anxiety
- Stable. Continue usual psychotropic med regimen without changes.
Benign Hypertension
- Stable. Continue usual outpatient medications.
Hypothyroidism
- Continue usual T4 supplementation.
DVT Prophylaxis: Lovenox
Code Status: DNR/DNI
Anticipated Discharge: 24 - 48 hours
Subjective/Interval History
-
Date of Service: December 13, 2024
resting comfortably, reports breathing improving
Objective Data
-
Labs:
Laboratory Results
12/13/24 12/13/24
05:10 07:04
WBC 13.8 H
Hgb 11.2 L
Hct 35.6 L
Plt Count 318
HCO3 35.5 H
Sodium 139
Potassium 5.4 H
Chloride 102
Carbon Dioxide 28
BUN 27 H
Creatinine 0.8
Glucose 140 H
Calcium 9.6
Vital Signs:
Vital Signs
Temp Pulse Resp BP Pulse Ox
97.6 F 76 16 117/67 93
12/13/24 07:47 12/13/24 07:47 12/13/24 07:47 12/13/24 07:47 12/13/24 08:00
I&O
12/12/24 12/13/24 12/14/24
06:59 06:59 06:59
Intake Total 425 / 425 640 / 640
Output Total 150 / 150
Balance 275 / 275 640 / 640
Physical Exam
-
General: No Apparent Distress and Obese
HEENT: Normocephalic and Atraumatic
Respiratory: Negative Wheezes
Cardiac: Regular Rhythm
GI: Soft
Genito-urinary: No Costovertebral Tender
Musculoskeletal: No Edema
Neuro: AO x 3
Psych: Calm
Data Reviewed
-
Total Time Spent with Patient (in minutes): 44
Labs: Labs Reviewed by me
[2024-12-13 11:12] VITALS: BP 120/52
[2024-12-13] MEDS: TUMS CHEWABLE TABLET 200 MG PO (14:23)
--- NOTE | 2024-12-13 15:23 | CON.PUL ---
Consultation
Consultation Request
Date/Time Consultation Requested: 12/13/2024
Date/Time Consultation Performed: 12/13/2024
Requesting Provider: Dr. Neff
Performing Provider: Dr. Len Garcia
Reason for Consultation: Acute exacerbation of COPD
Medical History
-
Chief Complaint: Exertional Dyspnea
History of Present Illness:
69-year-old woman with past medical history significant for COPD, schizophrenia presented to the emergency room complaining of shortness of breath on 12/10/2024. Patient reports symptoms for about a week. Reports sore throat and increased cough
from baseline. No significant phlegm production or hemoptysis. Apparently at her facility multiple residents were sick with upper respiratory symptoms.
Patient found to be bronchospastic in the emergency room.
Treated with nebulizers and steroids.
CT of the chest without infiltrate.
We were consulted for further care of her COPD.
[facility] records reviewed: Last time seen in our office was 12/2023. She is supposed to be on nebulized therapy including budesonide and DuoNeb.
Since then has not required prednisone or antibiotics.
It is noted that she has obstructive sleep apnea-unclear whether she is wearing CPAP therapy.
Past Medical History
Past Medical History: Other (See assessment and plan)
Social History
Tobacco: Former Smoker (100+ pack-year history of smoking quit in 2018)
Living: [facility]
Employment: Retired ([employer])
Occupational Exposures: Denies
Environmental Exposures: Denies
Family History
Family History: Reviewed & Not Pertinent
Allergies / Home Medications
Allergies
Allergy/AdvReac Type Severity Reaction Status Date / Time
cefepime Allergy Unknown Verified 12/17/23 16:53
codeine Allergy Unknown Verified 12/17/23 16:53
Penicillins Allergy Unknown Verified 12/17/23 16:53
vancomycin Allergy Unknown Verified 12/17/23 16:53
IV dye Allergy Anaphylaxis Uncoded 12/17/23 16:53
Home Medications
�Medication �Instructions �Recorded �Confirmed �Last Taken �Type
amlodipine 10 mg tablet 10 mg PO DAILY Blood Pressure 11/26/18 12/11/24 12/10/24 History
acetylcysteine 200 mg/mL (20 %) 3 ml PO Q8HPRN PRN SOB 02/07/23 12/11/24 12/03/24 History
solution
albuterol sulfate 90 mcg/actuation 2 puff inhalation R Q4HPRN PRN 02/07/23 12/11/24 02/23/24 History
aerosol inhaler (Ventolin HFA) asthma
bisacodyl 10 mg rectal suppository 10 mg MS DAILYPRN PRN constipation 02/07/23 12/11/24 Unknown History
(Dulcolax (bisacodyl)) if MOM ineffective
docusate sodium 100 mg capsule 200 mg PO HS Constipation 02/07/23 12/11/24 12/09/24 History
(Colace)
fexofenadine 180 mg tablet 180 mg PO DAILY Allergies 02/07/23 12/11/24 12/10/24 History
fluticasone furoate 27.5 1 spray intranasal DAILY Allergies 02/07/23 12/11/24 12/10/24 History
mcg/actuation nasal
spray,suspension
guaifenesin 600 mg tablet, 600 mg PO BID Congestion 02/07/23 12/11/24 12/10/24 History
extended release 12 hr (Mucinex)
ipratropium 0.5 mg-albuterol 3 mg 3 ml inhalation R QID 02/07/23 12/11/24 12/10/24 History
(2.5 mg base)/3 mL nebulization Lung/Breathing Issues
soln
ipratropium 20 mcg-albuterol 100 1 puff inhalation R DAILY 02/07/23 12/11/24 12/10/24 History
mcg/actuation mist for inhalation Lung/Breathing Issues
(Combivent Respimat)
levothyroxine 112 mcg tablet 112 mcg PO DAILY Thyroid 09/12/11/24 12/10/24 History
(Synthroid)
magnesium hydroxide 400 mg/5 mL 2,400 mg PO [id number] PRN 02/07/23 12/11/24 Unknown History
oral suspension (Milk of Magnesia) constipation ##0
melatonin 10 mg tablet 10 mg PO HS Sleep 02/07/23 12/11/24 12/09/24 History
montelukast 10 mg tablet 10 mg PO DAILY Allergies 02/07/23 12/11/24 12/10/24 History
(Singulair)
sodium phosphates 19 gram-7 118 ml MS DAILYPRN PRN 02/07/23 12/11/24 Unknown History
gram/118 mL enema (Fleet Enema) constipation if dulcolax
ineffective
venlafaxine 150 mg 150 mg PO DAILY Depression 02/07/23 12/11/24 12/10/24 History
capsule,extended release 24 hr
furosemide 40 mg tablet 40 mg PO DAILY #30 tabs 02/10/23 12/11/24 12/10/24 Rx
lisinopril 20 mg tablet 20 mg PO DAILY #30 tabs 02/10/23 12/11/24 12/10/24 Rx
acetaminophen 325 mg tablet 650 mg PO Q6HPRN PRN mild pain 12/11/24 12/11/24 12/05/24 History
(Tylenol)
albuterol sulfate 2.5 mg/3 mL 2.5 mg inhalation R Q4HPRN PRN sob 12/11/24 12/11/24 01/04/24 History
(0.083 %) solution for nebulization
budesonide 0.5 mg/2 mL suspension 0.5 mg inhalation R BID 12/11/24 12/11/24 12/10/24 History
for nebulization
clonazepam 0.5 mg tablet 0.5 mg PO BID Sleep 12/11/24 12/11/24 12/10/24 History
erythromycin 5 mg/gram (0.5 %) eye 1 applic BOTH EYES BIDPRN PRN 12/11/24 12/11/24 Unknown History
ointment blepharitis
fluphenazine HCl 2.5 mg tablet 2.5 mg PO BID 12/11/24 12/11/24 12/10/24 History
morphine concentrate 20 mg/mL oral 5 mg sublingual Q6HPRN PRN SOB 12/11/24 12/11/24 12/03/24 History
syringe (FOR ORAL USE ONLY)
potassium chloride 20 mEq 20 meq PO DAILY 12/11/24 12/11/24 12/10/24 History
tablet,extended release(part/cryst)
sennosides 8.6 mg-docusate sodium 1 tab-cap PO BID 12/11/24 12/11/24 12/10/24 History
50 mg tablet (Senna Plus)
trazodone 150 mg tablet 75 mg PO HS 12/11/24 12/11/24 12/09/24 History
venlafaxine 37.5 mg tablet 37.5 mg PO DAILY 12/11/24 12/11/24 12/10/24 History
Review of Systems
-
History Source: Patient
All other systems: Negative unless noted
Vitals / Labs / Diagnostic Testing
Vital Signs
Temp Pulse Resp BP Pulse Ox
98.0 F 78 18 120/52 97
12/13/24 11:12 12/13/24 11:15 12/13/24 11:15 12/13/24 11:12 12/13/24 11:15
Lab Data
12/13/24 07:04
12/13/24 07:04
Laboratory Results
12/13/24
05:10
pH 7.41
pCO2 56 H
pO2 59 L*
HCO3 35.5 H
O2 Delivery Level
Microbiology
12/10/24 23:55 Nasal Swab Influenza Types A & B (RENNY) - Final
Negative for Influenza A & B, NAAT
Negative results must be combined with clinical observations
and patient history.
Nucleic Acid Amplification test (NAAT)performed on the
[employer] ID NOW platform.
Diagnostic Testing:
Physical Exam
-
HEENT: Normocephalic
Cardiovascular: S1/S2
Respiratory: Wheeze (Bilateral expiratory) and Rhonchi
GI: Soft and Non Distended
Neurology: Awake, Alert and No Motor Deficits
Skin: Warm
General: Comfortable
Assessment
-
69-year-old woman with history of COPD, schizophrenia admitted to the hospital for long term complaining of shortness of breath, cough for about a week. Sick contacts at her facility with multiple residents with respiratory infection.
She was found to be bronchospastic. We were consulted on 12/13/2024
Acute exacerbation of COPD-likely triggered by viral infection.
CT chest 12/11/2024: Reviewed, overall predominant moderate to severe centrilobular emphysema. No acute infiltrates.
Neg Influenza/Neg Covid
Chronic hypercapnic respiratory failure:
AB.41/56/59-compensated.
Conditions present prior admission:
Chronic obstructive pulmonary disease-last time seen in our office 01/04/2024
2 L of oxygen
Spirometry 03/23/2023: FEV1 23% of predicted. Ratio 45%.
Follows Dr. Santana
Duoneb/Pulmicort nebs - unable to use inhalers.
Chronic hypercapnic respiratory failure: COPD/possibly obstructive sleep apnea-o not on CPAP therapy.
History of pulmonary nodule-2 to 3 mm-likely benign.
Chronic exertional dyspnea
Former smoker [id number] history-quit in 2018
Hypertension
Anxiety/insomnia
Assessment and plan:
Clinical picture suggestive of acute exacerbation of COPD likely due to upper respiratory infection
Agree with IV corticosteroids
Continue nebulizer therapy DuoNeb/Pulmicort which is her baseline
Continue Singulair
Agree with 5 days of doxycycline for bronchitis
Continue ox supplementation-2 L nasal cannula which is baseline based on last note from 12/2023.
-
Patient has history of chronic hypercapnic respiratory failure currently stable.
Avoid sedatives
Patient has history of obstructive sleep apnea documented but not on CPAP therapy.
Monitor mental status
If there is lethargy may need to use nocturnal BiPAP while in the hospital.
-
DVT prophylaxis Lovenox.
-
Dr. Garcia updated daughter over phone-12/13/2024
-
Will follow
[2024-12-13 15:25] VITALS: BP 154/77
[2024-12-13] MEDS: LOVENOX 40 MG SC (17:55)
[2024-12-13] MEDS: MELATONIN 10 MG PO (21:16)
[2024-12-13] MEDS: DESYREL 75 MG PO (21:16)
[2024-12-13 23:40] VITALS: BP 121/67
--- NOTE | 2024-12-14 03:28 | PTCARENOTE ---
Rec'd report from rn Luis, Pt arrived in sports bed from ICU. pt is aaox3. pt aware can not stay in room. resp called to place pt on bipap. pt oriented to room w/ call knowles in reach.
[2024-12-14] MEDS: SYNTHROID 112 MCG PO (04:54)
[2024-12-14 05:04] VITALS: BMI 31.4
[2024-12-14] MEDS: DUONEB 3 ML INH ×2 (07:31→11:09)
[2024-12-14] MEDS: PULMICORT 0.5 MG INH (07:31)
[2024-12-14 07:54] VITALS: BP 150/75
[2024-12-14 08:10] LABS: Hematocrit 34.0 % (37.0-47.0); Hemoglobin 10.6 g/dL (12.0-16.0); Mean Corp Hgb Conc. 31.2 g/dL (33.0-37.0); Mean Corpuscular Volume 97.4 fL (81.0-99.0); Platelet Count 286 10^3/uL (130-400); Red Cell Dist. Width 13.0 % (11.5-14.5)
[2024-12-14 08:43] LABS: Blood Urea Nitrogen 22 mg/dl (7-17); Calcium 9.1 mg/dl (8.4-10.2); Carbon Dioxide 35 mmol/L (22-30); Chloride 102 mmol/L (98-107); Estimated Creatinine Clearance 70 ml/min; Glucose 126 mg/dl (70-99); Potassium 4.9 mmol/L (3.5-5.1); Sodium 141 mmol/L (135-145); eGFR > 60.00
--- NOTE | 2024-12-14 10:41 | W.PN.HOSP.TC ---
Today's Communication/Plan
-
dc to SNF today
Assessment / Plan
Assessment / Plan
Assessment:
acute COPD exacerbation
Chronic Hypoxemic Respiratory Failure
- Patient with subjective increase in symptoms, but oxygenating well on usual 2 lpm of O2, afebrile, non-toxic appearing and with unremarkable CXR.
- transition to PO Steroids with taper, 40mg x 3 days, reduce by 10mg to off
- nebs scheduled and prn
- Doxycycline course, day 4/5
- Pulmonary exam suggests more interstitial disease process with diffuse 'dry' rales. CT chest: Moderate apical predominant emphysematous changes. There are minimal right basilar opacities which are favored to represent atelectasis, less likely
pneumonia.
- Patient noted to be 'DNR/DNI/DNH' per NH record and is on morphine concentrate for dyspnea. Discussed with Daughter Daniel - patient is DNR/DNI but is ok for treatment/hospitalization.
history of BALBINA
- with desats on nocturnal oximetry and also likely chronic hypercarbia - ABG confirms
- Pulmonary evaluation; patient previously with CPAP but could not tolerate due to claustrophobia, discomfort. Willing to retry it. CPAP setting of 10 recommended. Will add to dc instructions
Schizoaffective Disorder
Anxiety
- Stable. Continue usual psychotropic med regimen without changes.
Benign Hypertension
- Stable. Continue usual outpatient medications.
Hypothyroidism
- Continue usual T4 supplementation.
DVT Prophylaxis: Lovenox
Code Status: DNR/DNI
More than 30 minutes spent in discharge including
Final examination of the patient
Summarizing hospital stay
Instructions for continuing care to all relevant caregivers
Preparation of discharge records, prescriptions, and referral forms
Total time spent (in minutes): 41
Anticipated Discharge: Today
Subjective/Interval History
-
Date of Service: December 14, 2024
breathing improving
denies any complaints
Objective Data
-
Labs:
Laboratory Results
12/14/24
06:48
WBC 10.1
Hgb 10.6 L
Hct 34.0 L
Plt Count 286
Sodium 141
Potassium 4.9
Chloride 102
Carbon Dioxide 35 H
BUN 22 H
Creatinine 0.7
Glucose 126 H
Calcium 9.1
Vital Signs:
Vital Signs
Temp Pulse Resp BP Pulse Ox
97.8 F 65 16 150/75 99
12/14/24 07:54 12/14/24 07:54 12/14/24 07:54 12/14/24 07:54 12/14/24 07:54
I&O
12/13/24 12/14/24 12/15/24
06:59 06:59 06:59
Intake Total 640 / 640 1630 / 1630
Balance 640 / 640 1630 / 1630
Physical Exam
-
General: No Apparent Distress
HEENT: Normocephalic and Atraumatic
Respiratory: Negative Wheezes
Cardiac: Regular Rhythm
GI: Soft
Genito-urinary: No Costovertebral Tender
Neuro: AO x 3
Psych: Calm
Data Reviewed
-
Total Time Spent with Patient (in minutes): 41
Labs: Labs Reviewed by me
[2024-12-14] MEDS: PROLIXIN 2.5 MG PO (10:49)
[2024-12-14] MEDS: COLACE 200 MG PO (10:50)
[2024-12-14] MEDS: SINGULAIR 10 MG PO (10:50)
[2024-12-14] MEDS: VIBRAMYCIN 100 MG PO (10:50)
[2024-12-14] MEDS: EFFEXOR 37.5 MG PO (10:50)
[2024-12-14] MEDS: MUCINEX 600 MG PO (10:50)
[2024-12-14] MEDS: SENOKOT-S 1 TABLET PO (10:50)
[2024-12-14] MEDS: CLARITIN 10 MG PO (10:50)
[2024-12-14] MEDS: ZESTRIL 20 MG PO (10:51)
[2024-12-14] MEDS: KLONOPIN 0.5 MG PO (10:51)
[2024-12-14] MEDS: LASIX 40 MG PO (10:51)
[2024-12-14] MEDS: EFFEXOR XR 150 MG PO (10:51)
[2024-12-14] MEDS: SOLU-MEDROL PF 40 MG IV (10:52)
--- NOTE | 2024-12-14 11:01 | W.DS.TRANS ---
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
-
Discharge Instructions:
Discharge Diagnosis/Procedures BALBINA. Acute copd exacerbation
Diet Regular
Activity As tolerated
Instructions:
Stand-Alone Forms:
Changes to Home Medications: No
Discharge Medications:
DC Medications w/original date entered in [employer]
amlodipine 10 mg tablet 10 mg PO DAILY Blood Pressure 11/26/18
acetylcysteine 200 mg/mL (20 %) solution 3 ml PO Q8HPRN PRN SOB 02/07/23
albuterol sulfate 90 mcg/actuation aerosol inhaler (Ventolin HFA) 2 puff inhalation R Q4HPRN PRN asthma 02/07/23
bisacodyl 10 mg rectal suppository (Dulcolax (bisacodyl)) 10 mg RI DAILYPRN PRN constipation if MOM ineffective 02/07/23
docusate sodium 100 mg capsule (Colace) 200 mg PO HS Constipation 02/07/23
fexofenadine 180 mg tablet 180 mg PO DAILY Allergies 02/07/23
fluticasone furoate 27.5 mcg/actuation nasal spray,suspension 1 spray intranasal DAILY Allergies 02/07/23
guaifenesin 600 mg tablet, extended release 12 hr (Mucinex) 600 mg PO BID Congestion 02/07/23
ipratropium 0.5 mg-albuterol 3 mg (2.5 mg base)/3 mL nebulization soln 3 ml inhalation R QID Lung/Breathing Issues 02/07/23
ipratropium 20 mcg-albuterol 100 mcg/actuation mist for inhalation (Combivent Respimat) 1 puff inhalation R DAILY Lung/Breathing Issues 02/07/23
levothyroxine 112 mcg tablet (Synthroid) 112 mcg PO DAILY Thyroid 02/07/23
magnesium hydroxide 400 mg/5 mL oral suspension (Milk of Magnesia) 2,400 mg PO [id number] PRN constipation ##0 02/07/23
melatonin 10 mg tablet 10 mg PO HS Sleep 02/07/23
montelukast 10 mg tablet (Singulair) 10 mg PO DAILY Allergies 02/07/23
sodium phosphates 19 gram-7 gram/118 mL enema (Fleet Enema) 118 ml RI DAILYPRN PRN constipation if dulcolax ineffective 02/07/23
venlafaxine 150 mg capsule,extended release 24 hr 150 mg PO DAILY Depression 02/07/23
furosemide 40 mg tablet 40 mg PO DAILY #30 tabs 02/10/23
lisinopril 20 mg tablet 20 mg PO DAILY #30 tabs 02/10/23
acetaminophen 325 mg tablet (Tylenol) 650 mg PO Q6HPRN PRN mild pain 12/11/24
albuterol sulfate 2.5 mg/3 mL (0.083 %) solution for nebulization 2.5 mg inhalation R Q4HPRN PRN sob 12/11/24
budesonide 0.5 mg/2 mL suspension for nebulization 0.5 mg inhalation R BID 12/11/24
erythromycin 5 mg/gram (0.5 %) eye ointment 1 applic BOTH EYES BIDPRN PRN blepharitis 12/11/24
fluphenazine HCl 2.5 mg tablet 2.5 mg PO BID 12/11/24
potassium chloride 20 mEq tablet,extended release(part/cryst) 20 meq PO DAILY 12/11/24
sennosides 8.6 mg-docusate sodium 50 mg tablet (Senna Plus) 1 tab-cap PO BID 12/11/24
trazodone 150 mg tablet 75 mg PO HS 12/11/24
venlafaxine 37.5 mg tablet 37.5 mg PO DAILY 12/11/24
clonazepam 0.5 mg tablet 0.5 mg PO BID Sleep #6 tabs 12/14/24
doxycycline hyclate 100 mg capsule 100 mg PO Q12 #3 caps 12/14/24
morphine concentrate 20 mg/mL oral syringe (FOR ORAL USE ONLY) 5 mg (0.25 mL) sublingual Q6HPRN PRN SOB #20 mL 12/14/24
prednisone 10 mg tablet 10 mg PO DIRECTED #30 tabs 12/14/24
Home Medication Changes
Pending Results: No
Total time spent discharging patient (in min): 42
--- NOTE | 2024-12-14 11:44 | CM ---
Received notification that patient is medically stable for discharge. Placed a call to Zoya in admissions at [facility] who stated that patient can return today. Indication from PT is SNF. Met with patient to discuss. She is agreeable to SNF
and agreeable to [facility], SNF then return to LTC. Reviewed IMM and patient signed IMM . It is on chart.
Medical necessity and transfer sheet completed and provided to 4e unit reactor operator.
Plan: Case management will continue to follow and assist with discharge planning. [facility] today.
--- NOTE | 2024-12-14 13:07 | W.PN.PUL3 ---
Today's Communication / Plan
-
Prednisone taper
Continue nebulizer therapy
Oxygen supplementation at baseline
Okay to discharge on CPAP 10 cm with outpatient reevaluation
High risk for readmission
Discharge planning
Sign off
Assessment
-
69-year-old woman with history of COPD, schizophrenia admitted to the hospital for usp complaining of shortness of breath, cough for about a week. Sick contacts at her facility with multiple residents with respiratory infection.
She was found to be bronchospastic. We were consulted on 12/13/2024
Acute exacerbation of COPD-likely triggered by viral infection.
CT chest 12/11/2024: Reviewed, overall predominant moderate to severe centrilobular emphysema. No acute infiltrates.
Neg Influenza/Neg Covid
Chronic hypercapnic respiratory failure:
AB.41/56/59-compensated.
Conditions present prior admission:
Chronic obstructive pulmonary disease-last time seen in our office 01/04/2024
2 L of oxygen
Spirometry 03/23/2023: FEV1 23% of predicted. Ratio 45%.
Follows Dr. Santana
Duoneb/Pulmicort nebs - unable to use inhalers.
Chronic hypercapnic respiratory failure: COPD/possibly obstructive sleep apnea-o not on CPAP therapy.
History of pulmonary nodule-2 to 3 mm-likely benign.
Chronic exertional dyspnea
Former smoker [id number] history-quit in 2018
Hypertension
Anxiety/insomnia
Assessment and plan:
Clinical picture suggestive of acute exacerbation of COPD likely due to upper respiratory infection
No longer bronchospastic. Clinically improved.
transition to prednisone with taper.
Continue nebulizer therapy DuoNeb/Pulmicort which is her usual regimen.
Continue Singulair
Agree with 5 days of doxycycline for bronchitis
Continue ox supplementation-2 L nasal cannula which is baseline based on last note from 12/2023.
-
Patient has history of chronic hypercapnic respiratory failure currently stable.
Avoid sedatives
Patient has history of obstructive sleep apnea documented but not on CPAP therapy.
Agree with recommending CPAP 10 cm of water for now as a trial. See if patient tolerates. If able to tolerate we can fine-tune need for BiPAP etc. in the outpatient setting.
Mental status back to baseline.
-
DVT prophylaxis Lovenox.
-
Dr. Garcia updated daughter over phone-12/13/2024
Discussed with primary team. Agree with discharge planning.
Subjective Data
-
Date of Service:
Date of Service: December 14, 2024
Chief Complaint: Pulmonary Follow Up (Acute exacerbation of COPD)
Subjective:
Patient offers no new complaints, feels improved.
Objective Data
Data Reviewed
Vital Signs / I&O / Oxygen:
Vital Signs
Temp Pulse Resp BP Pulse Ox
97.8 F 72 18 150/75 98
12/14/24 07:54 12/14/24 11:11 12/14/24 11:11 12/14/24 10:51 12/14/24 11:11
Intake and Output
12/13/24 12/14/24 12/15/24
06:59 06:59 06:59
Intake Total 640 / 640 1630 / 1630
Balance 640 / 640 1630 / 1630
SaO2 98
Nasal Cannula flow liters per 2
minute
Physical Exam
General: Respiratory Distress
HEENT: Normocephalic
Cardiovascular: S1-S2
Respiratory: Clear and Other (Good air movement)
GI: Soft and Non Distended
Neurology: Awake
Labs/Micro/Reports
Lab Data
12/14/24 06:48
12/14/24 06:48
[2024-12-14 13:54] VITALS: BP 124/58
== END 2024-12-14 15:40 ==
LOC: 4 EAST ACU 02:09
PROVIDERS: Emergency Medicine; Physician Assistant; ADMITTING PHYSICIAN Hospitalist; ATTENDING PHYSICIAN Internal Medicine; CONSULT PHYSICIAN Internal Medicine Critical Care Medicine; EMERGENCY PHYSICIAN Emergency Medicine; FAMILY PHYSICIAN Student in an Organized Health Care Education/Training Program
DX: J44.1 Chronic obstructive pulmonary disease with (acute) exacerbation (principal); I11.0 Hypertensive heart disease with heart failure; J96.11 Chronic respiratory failure with hypoxia; E03.9 Hypothyroidism, unspecified; E78.00 Pure hypercholesterolemia, unspecified; F25.9 Schizoaffective disorder, unspecified; J96.12 Chronic respiratory failure with hypercapnia; G47.00 Insomnia, unspecified; F41.9 Anxiety disorder, unspecified; I50.9 Heart failure, unspecified; E66.9 Obesity, unspecified; G47.33 Obstructive sleep apnea (adult) (pediatric); Z11.52 Encounter for screening for COVID-19; Z66 Do not resuscitate; Z68.31 Body mass index [BMI] 31.0-31.9, adult; Z79.899 Other long term (current) drug therapy; Z87.891 Personal history of nicotine dependence; Z99.81 Dependence on supplemental oxygen
CPT/HCPCS: 36600; 71046; 71250; 80048; 80053; 82805; 83880; 84484; 85025; 85027; 87502; 87811; 92610; 93005; 94640; 94762; 97163; 97166; 97535; 99285; G0378

== ENCOUNTER 2025-01-06 14:45 | Emergency (ER) | payer MEDICARE, OTHER, SELFPAY ==
[2025-01-06] VITALS (9 sets, daily range): BP systolic 98–130; BP diastolic 55–93; BMI 28.9
[2025-01-06 15:06] LABS: Hematocrit 39.5 % (37.0-47.0); Hemoglobin 12.4 g/dL (12.0-16.0); Mean Corp Hgb Conc. 31.4 g/dL (33.0-37.0); Mean Corpuscular Volume 93.8 fL (81.0-99.0); Nucleated Red Blood Cells % 0 %; Platelet Count 307 10^3/uL (130-400); Red Cell Dist. Width 13.0 % (11.5-14.5)
[2025-01-06 15:30] LABS: ALT (SGPT) 39 U/L (0-35); AST (SGOT) 33 U/L (14-36); Albumin 4.7 g/dl (3.5-5.0); Alkaline Phosphatase 47 U/L (38-126); Blood Urea Nitrogen 15 mg/dl (7-17); Calcium 9.7 mg/dl (8.4-10.2); Carbon Dioxide 33 mmol/L (22-30); Chloride 100 mmol/L (98-107); Glucose 137 mg/dl (70-99); Potassium 5.4 mmol/L (3.5-5.1); Sodium 141 mmol/L (135-145); Total Protein 7.7 g/dl (6.3-8.2); eGFR > 60.00
[2025-01-06] MEDS: DUONEB 3 ML INH (16:27)
[2025-01-06] MEDS: DECADRON 10 MG IV (16:28)
--- NOTE | 2025-01-06 17:31 | ED.GENMED ---
History of Present Illness
General
Chief Complaint: Breathing Problem
Source: patient
Exam Limitations: none
Time Seen by Provider: 01/06/25 15:38
Nursing documentation reviewed up to this point in time: agreed with
History of Present Illness
History of Present Illness:
69-year-old female with history of COPD on 2L NC, hypertension who presents to the emergency department for evaluation of shortness of breath. Patient reports gradual onset shortness of breath around 12:30 PM today. According to [place]
described shortness of breath and was found to be hypoxic in upper 80s on her normal 2 L supplemental O2. Patient was given a breathing treatment with almost immediate improvement in vital signs however patient preferred evaluation emergency
department.
By my evaluation�patient states that she feels almost back at her baseline. She denies any recent fever or productive cough. She denies any exertional chest pain or lower extremity swelling. She denies any severe back pain.
Past History
Past History
ED Past Medical History: CHF, COPD (Emphysema/asthma), HTN, Hypercholesterolemia, Hypothyroidism, Psychiatric (Schizoaffective disorder, anxiety, never been hospitalized), Other (Bilateral Pneumonia, Diverticulitis,), Other (Dysphagia) and Other
(Ambulatory dysfunction)
ED Past Surgical History: Appendectomy and Cholecystectomy
Social History
Tobacco: Former smoker
Alcohol: Occasional
Drug: None
Personal:
Living: [facility]
Employment: Retired
Family History
Family History: Other (Noncontributory)
Review of Systems
Review of Systems
Allergies reviewed?: Yes
All Other Systems: ROS reviewed and negative except as documented in HPI and ROS
Phy Exam
Physical Exam
Physical Exam:
General: Patient is chronically ill-appearing. On 2 L nasal cannula
Skin: Warm and dry, no rashes or lesions
Head: Normocephalic, atraumatic
Eyes: Sclera nonicteric. EOMs intact. No nystagmus.
Throat: Protecting airway
Neck: Normal ROM, no cervical spine tenderness, no meningismus
Cardiac: Regular rate and rhythm, no murmurs.
Pulm: Mildly tachypneic. Decreased breath sounds bilaterally with minimal expiratory wheeze.
Abdomen: Abdomen soft and nontender.
Extremities: No evidence of cyanosis or edema. Palpable DP pulses bilaterally
Neuro: AAOx3. Grossly intact.
Psychiatric: Normal affect.
Scores
Heart Failure Risk
Heart Failure Risk Score: Not Applicable
Course
Orders/Labs/Results
Orders:
Orders
01/06/25 14:50
Electrocardiogram (*1) Urgent
Reason for Study: Shortness of Breath
01/06/25 14:51
EKG- Treatment ONCE
01/06/25 14:57
Complete Blood Count/With Diff Urgent
Comprehensive Metabolic Panel Urgent
01/06/25 15:10
CR Chest - 2 Views Urgent
Comment:
Reason For Exam: SOB
01/06/25 15:55
Dexamethasone Sod Phosphate [Decadron] 10 mg IV NOW STA
Ipratropium/Albuterol Sulfate [Duoneb] 3 ml INH R NOW STA
01/06/25 17:47
Troponin I Urgent
Abnormal Lab Results
01/06/25
14:57
WBC 10.9 H 10^3/uL
(4.8-10.8)
MCHC 31.4 L g/dL
(33.0-37.0)
Absolute Neuts (auto) 7.1 H 10^3/uL
(1.4-6.5)
Potassium 5.4 H mmol/L
(3.5-5.1)
Carbon Dioxide 33 H mmol/L
(22-30)
Glucose 137 H mg/dl
(70-99)
ALT 39 H U/L
(0-35)
01/06/25 14:57
01/06/25 14:57
Vital Signs
Initial and Last Documented VS:
Initial Vital Signs
Resp Pulse Ox
17 81
01/06/25 14:49 01/06/25 14:49
Last Documented Vital Signs
Temp Pulse Resp BP Pulse Ox
97.9 F 91 31 128/65 95
01/06/25 14:53 01/06/25 21:00 01/06/25 21:00 01/06/25 21:00 01/06/25 19:00
MDM/Problems Addressed
Differential Diagnosis Includes:
Not limited to: bronchitis, acute COPD exacerbation, pleural effusion, pneumonia, ACS, etc
MDM/Problems Addressed:
69-year-old with COPD on home O2 presenting with gradually worsening shortness of breath today. No fever, productive cough, chest pain. No lower extremity swelling. She was given breathing treatment prior to arrival to ED with improvement in
symptoms. O2 saturation in low 90s on arrival w/ baseline 2 L nasal cannula. Triage O2 of 81 noted however discussed with RN who states this was documentation error. She is mildly tacypneic however otherwise has stable vital signs. Physical exam as
above.
EKG obtained upon arrival shows normal sinus rhythm with non specific ST changes � unchanged from prior.
Overall, suspect likely COPD exacerbation. Other possibilities would be bronchitis, pneumonia, plural effusion. Less likely acute CHD exacerbation or pulmonary embolism, given no evidence of fluid overload on exam and improvement following
bronchodilators. Will check basic labs, troponin, chest x-ray. While patients symptoms have significantly improved� given persistently diminished breath sounds, although may be baseline � will give additional duoneb and IV steroids.
Update: Labs without clinically significant abnormalities. Troponin undetectable. CXR without acute findings.
Patient�s O2 saturation has remained in the mid 90s on her baseline 2 L O2 since arrival to ED. She reports significant improvement since earlier today and denies any current sensation of shortness of breath different from her baseline.
Do not suspect infectious component. Do not suspect acute coronary syndrome or other emergent cardiac process. Offered admission for continued management of suspected COPD exacerbation however, patient prefers discharge home as she feels much
better. Vitals are reassuring.
Will discharge with short course oral steroids and continued breathing treatments at home. Very strict return precautions discussed. Patient expressed verbal understanding.
Chronic conditions affecting care:
COPD
Acute Exacerbation and/or Progression of Chronic Illness:
Acute COPD exacerbation
*Radiology
Radiology exam reviewed: preliminary read by ED provider and radiology read reviewed
*Pulse Oximetry
SaO2: 100
Nasal Cannula flow liters per minute: 2
Oxygen Mode of Delivery: Room air
Patient hypoxic: yes
*EKG
Interpreted by ED Provider?: Yes
EKG Intrepretation Date: 01/06/25
Interpretation: abnormal
Comparison EKG: no changes
Heart Rate: 92
Rate: normal
Rhythm: sinus
QRS Pattern: right bundle branch block
Ischemia: non-specific ST changes
*Aws Architect Interpretation
Rate: normal
Interpretation: normal
Heart Rate: 86
Rhythm: sinus
*Critical Care Note
Total Time (30-74mins, 75-104mins- exclusive of procedures): Not Applicable
ED Attending Note
-
Portions of this chart may have been created with voice recognition software.� Occasional wrong word or��sound alike� substitutions may have occurred due to the inherent limitations of voice recognition software.
Discharge Plan
Departure
Patient Disposition: Home (Routine Discharge)
Date of Disposition: 01/06/25
Time of Disposition: 18:34
Patient with high blood pressure during this ER visit?: No
Discharge Problem:
COPD with acute exacerbation
Instructions: Exacerbation of COPD (DC), BLOOD PRESSURE
Prescriptions:
New
prednisone 50 mg tablet
50 mg PO DAILY Qty: 4 0RF
No Action
amlodipine 10 MG tablet
10 mg PO DAILY
acetylcysteine 200 mg/mL (20 %) Solution
3 ml PO Q8HPRN PRN (Reason: SOB)
fexofenadine 180 mg Tablet
180 mg PO DAILY
docusate sodium [Colace] 100 mg Capsule
200 mg PO HS
Combivent Respimat 20-100 mcg/actuation Mist
1 puff INHALATION R DAILY
bisacodyl [Dulcolax (bisacodyl)] 10 mg Suppository
10 mg SC DAILYPRN PRN (Reason: constipation if MOM ineffective)
Fleet Enema 19-7 gram/118 mL Enema
118 ml SC DAILYPRN PRN (Reason: constipation if dulcolax ineffective)
fluticasone furoate 27.5 mcg/actuation [place],Suspension
1 spray INTRANASAL DAILY
ipratropium-albuterol 0.5 mg-3 mg(2.5 mg base)/3 mL Solution For Nebulization
3 ml INHALATION R QID
levothyroxine [Synthroid] 112 mcg Tablet
112 mcg PO DAILY
melatonin 10 mg Tablet
10 mg PO HS
magnesium hydroxide [Milk of Magnesia] 400 mg/5 mL Suspension
2,400 mg PO [id number] PRN (Reason: constipation) Qty: 0
guaifenesin [Mucinex] 600 mg Tablet Extended Release 12hr
600 mg PO BID
montelukast [Singulair] 10 mg Tablet
10 mg PO DAILY
venlafaxine 150 mg Capsule,Extended Release 24hr
150 mg PO DAILY
albuterol sulfate [Ventolin HFA] 90 mcg/actuation Hfa Aerosol Inhaler
2 puff INHALATION R Q4HPRN PRN (Reason: asthma)
furosemide 40 mg Tablet
40 mg PO DAILY Qty: 30 0RF
lisinopril 20 mg Tablet
20 mg PO DAILY Qty: 30 0RF
fluphenazine HCl 2.5 mg Tablet
2.5 mg PO BID
sennosides-docusate sodium [Senna Plus] 8.6-50 mg Tablet
1 tab-cap PO BID
potassium chloride 20 mEq Tablet,Er Particles/Crystals
20 meq PO DAILY
venlafaxine 37.5 mg Tablet
37.5 mg PO DAILY
Rx Instructions:
total morning dose 187.5mg
trazodone 150 mg Tablet
75 mg PO HS
budesonide 0.5 mg/2 mL Suspension For Nebulization
0.5 mg INHALATION R BID
acetaminophen [Tylenol] 325 mg Tablet
650 mg PO Q6HPRN PRN (Reason: mild pain)
albuterol sulfate 2.5 mg /3 mL (0.083 %) Solution For Nebulization
2.5 mg INHALATION R Q4HPRN PRN (Reason: sob)
erythromycin 5 mg/gram (0.5 %) Ointment
1 applic BOTH EYES BIDPRN PRN (Reason: blepharitis)
clonazepam 0.5 MG tablet
0.5 mg PO BID Qty: 6 0RF
morphine concentrate 20 mg/mL Syringe
5 mg SUBLINGUAL Q6HPRN PRN (Reason: SOB) Qty: 20 0RF
Referrals:
Lee Best DO [Family Provider, Family Practice]
Activity Restrictions/Additional Instructions:
RETURN TO THE EMERGENCY DEPARTMENT WITH ANY FEVER, CHILLS, CHEST PAIN, SHORTNESS OF BREATH/DIFFICULTY BREATHING, WORSENING OF CURRENT SYMPTOMS, OR ANY OTHER CONCERNS
- You were given a breathing treatment and IV steroids in the emergency department. A course of oral steroids was sent to your pharmacy which you can start tomorrow. Please continue to use breathing treatments as prescribed.
- Your potassium level was mildly elevated today in the emergency department. Please have this repeated with your primary care to ensure trending down.
- Follow-up with your legal officer as scheduled for further evaluation/management of your COPD
Monitor your symptoms closely and return to the emergency department with any acute worsening/new symptoms or any other concerns
Interventions
Interventions:
*Risk Screen - Suicide Last Done: 01/06/25 14:52
*General Assessment Last Done: 01/06/25 16:41
*Neglect/Abuse Screening Last Done: 01/06/25 14:52
*ED- Fall Risk Assessment Last Done: 01/06/25 16:41
*ED COVID-19 Vaccine History Last Done: 01/06/25 16:42
*Nursing Disposition Last Done: 01/06/25 21:24
ED- Cardiac Assessment Last Done: 01/06/25 19:58
ED- Pulmonary Assessment Last Done: 01/06/25 19:58
Discharge Date and Time
Discharge Date/Time: 01/06/25 21:24
Print Language: NIGERIAN
[2025-01-06 18:18] LABS: Troponin I < 0.012 ng/ml
== END 2025-01-06 21:24 | disposition home or self-care (01) ==
LOC: EMR 14:45
PROVIDERS: Physician Assistant; EMERGENCY PHYSICIAN Emergency Medicine; FAMILY PHYSICIAN Student in an Organized Health Care Education/Training Program
DX: J44.1 Chronic obstructive pulmonary disease with (acute) exacerbation (principal); I45.10 Unspecified right bundle-branch block; I11.0 Hypertensive heart disease with heart failure; I50.9 Heart failure, unspecified; E78.00 Pure hypercholesterolemia, unspecified; E03.9 Hypothyroidism, unspecified; F25.9 Schizoaffective disorder, unspecified; F41.9 Anxiety disorder, unspecified; K57.92 Diverticulitis of intestine, part unspecified, without perforation or abscess without bleeding; K21.9 Gastro-esophageal reflux disease without esophagitis; M19.90 Unspecified osteoarthritis, unspecified site; Z99.81 Dependence on supplemental oxygen; Z90.49 Acquired absence of other specified parts of digestive tract; Z86.16 Personal history of COVID-19; Z87.891 Personal history of nicotine dependence; Z87.01 Personal history of pneumonia (recurrent); Z88.5 Allergy status to narcotic agent; Z88.0 Allergy status to penicillin; Z88.8 Allergy status to other drugs, medicaments and biological substances; Z88.1 Allergy status to other antibiotic agents; Z91.041 Radiographic dye allergy status
CPT/HCPCS: 99285; 96374; 94640; 71046; 80053; 84484; 85025; 93005

== ENCOUNTER → 2025-02-05 14:40 | Outpatient (REF) | payer MEDICARE, OTHER, SELFPAY | LOC: RCS 14:40 | PROVIDERS: ATTENDING PHYSICIAN Nurse Practitioner Family; FAMILY PHYSICIAN Student in an Organized Health Care Education/Training Program | DX: R06.02 Shortness of breath (principal) | CPT/HCPCS: 93306; Q9950 ==